=== PATIENT | female | born 1960 | race Caucasian/White ===

== ENCOUNTER 2020-03-16 08:43 | Outpatient (REF) | payer OTHER, SELFPAY ==
--- NOTE | 2020-03-16 | US_ITS ---
EXAMINATION: ULTRASOUND SOFT TISSUE NECK CLINICAL INFORMATION: Multinodular thyroid. Cervical lymphadenopathy. COMPARISON: None TECHNIQUE: Routine imaging of the neck was performed for lymph node evaluation. FINDINGS: RIGHT NECK: 1. Level 5 the lymph node measures 0.8 x 0.6 x 0.9 cm. It has central echogenic medulla and hypoechoic cortex, normal pattern. 2. Level 5B lymph node measures 1.7 x 0.6 x 1.2 cm. It has homogeneous echotexture. 3. Level 2 lymph node measures 1.2 x 0.6 x 1.0 cm. Central echogenic area and hypoechoic cortex, a normal pattern. 4. On a lymph node measures 0.9 x 0.6 x 0.9 cm and is normal. LEFT NECK: 1. Level 5B lymph node measures 1.5 x 0.6 x 1.3 cm. There is central echogenic medulla and surrounding hypoechoic cortex. US/US soft tiss head and/or neck IMPRESSION: Benign bilateral neck lymph nodes seen.
== END 2020-03-16 08:44 | disposition home or self-care (01) ==
LOC: HO.US 08:43
PROVIDERS: PCP Internal Medicine; Visit Provider Internal Medicine
DX: E04.2 Nontoxic multinodular goiter (principal); E55.9 Vitamin D deficiency, unspecified; R59.0 Localized enlarged lymph nodes
CPT/HCPCS: 76536

== ENCOUNTER → 2020-04-29 08:00 | Outpatient (BNVA) | payer OTHER, SELFPAY | PROVIDERS: PCP Internal Medicine; Referring Provider Internal Medicine; Visit Provider Internal Medicine | DX: Z13.89 Encounter for screening for other disorder (principal) | CPT/HCPCS: Q3014 ==

== ENCOUNTER 2020-05-22 06:59 | Outpatient (REF) | payer OTHER, SELFPAY ==
[2020-05-22 08:20] LABS: Estimated Average Glucose 126 mg/dL
[2020-05-22 08:29] LABS: Alanine Aminotransferase 18 U/L (0-31); Albumin Level 4.2 g/dL (3.5-5.0); Alkaline Phosphatase 157 U/L (39-117); Anion Gap 11 (12-20); Aspartate Amino Transferase 18 U/L (5-31); Bilirubin Total 0.3 mg/dL (0.0-1.0); Blood Urea Nitrogen 11 mg/dL (9-16); Calcium 8.8 mg/dL (8.4-10.2); Carbon Dioxide 27 mmol/L (22-29); Chloride 104 mmol/L (96-108); Cholesterol 136 mg/dL; Estimated Glomerular Filt Rate 49; Glucose Random 121 mg/dL (60-115); HDL Cholesterol 45 mg/dL; LDL Cholesterol Calculated 61 mg/dl; Sodium 138 mmol/L (135-145); Total Protein 7.5 g/dL (6.5-8.0); Triglycerides 154 mg/dL
[2020-05-22 08:51] LABS: Vitamin D 25-OH Total 33.1 ng/mL (>30)
[2020-05-22 09:25] LABS: Creatinine Urine 168.84 mg/dL; Microalbum/Creatinine Ratio Ur 16.5 ug/mg cr
[2020-05-24 01:28] LABS: LDL Cholesterol Direct 54 mg/dL (<100)
== END 2020-05-22 07:00 | disposition home or self-care (01) ==
LOC: HO.LAB 06:59
PROVIDERS: PCP Internal Medicine; Visit Provider Internal Medicine
DX: E11.65 Type 2 diabetes mellitus with hyperglycemia (principal); E55.9 Vitamin D deficiency, unspecified
CPT/HCPCS: 36415; 80053; 80061; 82043; 82306; 83036; 83721

== ENCOUNTER → 2020-06-04 14:37 | Outpatient (BNVA) | payer OTHER, SELFPAY | PROVIDERS: Visit Provider Internal Medicine ==

== ENCOUNTER 2020-07-22 09:01 | Outpatient (REF) | payer OTHER, SELFPAY ==
[2020-07-22 10:44] LABS: Creatinine Urine 211.59 mg/dL; Protein/Creatinine Ratio, Ur 0.17 (<0.2); Total Protein Urine Random 37 mg/dL (<12)
[2020-07-22 11:06] LABS: Estimated Average Glucose 117 mg/dL; Hemoglobin A1c % 5.7 %
[2020-07-22 13:25] LABS: Alanine Aminotransferase 18 U/L (0-31); Albumin Level 4.2 g/dL (3.5-5.0); Alkaline Phosphatase 136 U/L (39-117); Anion Gap 13 (12-20); Aspartate Amino Transferase 20 U/L (5-31); Bilirubin Total 0.6 mg/dL (0.0-1.0); Blood Urea Nitrogen 9 mg/dL (9-16); Calcium 8.8 mg/dL (8.4-10.2); Carbon Dioxide 24 mmol/L (22-29); Chloride 107 mmol/L (96-108); Estimated Glomerular Filt Rate 53; Glucose Random 91 mg/dL (60-115); Potassium 3.9 mmol/L (3.3-5.1); Sodium 140 mmol/L (135-145); Total Protein 7.6 g/dL (6.5-8.0)
[2020-07-22 13:41] LABS: TSH reflex Free T4 2.13 uIU/mL (0.32-4.0)
== END 2020-07-22 09:02 | disposition home or self-care (01) ==
LOC: HO.LAB 09:01
PROVIDERS: Internal Medicine; Absent Provider Internal Medicine Hypertension Specialist; PCP Internal Medicine; Visit Provider Internal Medicine
DX: E11.65 Type 2 diabetes mellitus with hyperglycemia (principal); I10 Essential (primary) hypertension; R80.9 Proteinuria, unspecified; E04.2 Nontoxic multinodular goiter; I87.2 Venous insufficiency (chronic) (peripheral)
CPT/HCPCS: 36415; 80053; 83036; 84156; 84443

== ENCOUNTER → 2020-07-29 09:02 | Outpatient (BNVA) | payer OTHER, SELFPAY | PROVIDERS: PCP Internal Medicine; Visit Provider Internal Medicine | DX: E11.65 Type 2 diabetes mellitus with hyperglycemia (principal); E04.2 Nontoxic multinodular goiter; E78.5 Hyperlipidemia, unspecified; R59.0 Localized enlarged lymph nodes; I10 Essential (primary) hypertension; Z79.84 Long term (current) use of oral hypoglycemic drugs; Z71.3 Dietary counseling and surveillance | CPT/HCPCS: 82947; 99212 ==

== ENCOUNTER 2020-08-06 09:06 | Outpatient (REF) | payer OTHER, SELFPAY | END 2020-08-06 09:07 | disposition home or self-care (01) | LOC: HO.LAB 09:06 | PROVIDERS: Absent Provider Internal Medicine; PCP Internal Medicine; Visit Provider Surgery Vascular Surgery | DX: E04.2 Nontoxic multinodular goiter (principal); I83.12 Varicose veins of left lower extremity with inflammation | CPT/HCPCS: 36415; 84443; 99202 ==

== ENCOUNTER 2020-08-17 09:59 | Outpatient (REF) | payer OTHER, SELFPAY ==
--- NOTE | ~2020-08-17 | US_ITS ---
EXAMINATION: RIGHT and LEFT LOWER EXTREMITY VENOUS ULTRASOUND (Reflux Exam) CLINICAL INDICATION: leg pain and varicose veins. COMPARISON: None. TECHNIQUE: Color flow triplex imaging and compression Doppler was performed to evaluate both the deep and the superficial systems bilaterally. To evaluate the superficial system, the examination was performed in the upright position. Color-flow Doppler ultrasound and compression ultrasound were utilized. In addition, maneuvers were utilized to demonstrate reflux. FINDINGS: 1. DEEP VENOUS ULTRASOUND OF THE RIGHT LOWER EXTREMITY: Respiratory variation, normal compression and augmented flow are noted in the right common femoral vein as well as the right popliteal vein and there is no evidence of deep venous thrombosis at these locations. There is no evidence of reflux in the deep system in either the common femoral vein or the popliteal vein. There is no evidence of a Stacy's cyst. 2. SUPERFICIAL ULTRASOUND WITH DOPPLER OF RIGHT LOWER EXTREMITY: The right great saphenous vein at the saphenofemoral junction measures 6 mm, at the mid thigh 5 mm, qpzuu-[id number]-jauf 2 mm, ubcwh-zfn-boio 2 mm, at mid calf 2 mm and at the ankle measures 2 mm. There is no reflux demonstrated in the right great saphenous vein. There is a lateral accessory greater saphenous vein that measures 2 mm and does not demonstrate reflux. The right small saphenous vein measures 2-3 mm and shows no reflux. There is a electric power superintendent in the mid calf that measures 2 mm and does not demonstrate reflux. 3. DEEP VENOUS ULTRASOUND OF THE LEFT LOWER EXTREMITY: Respiratory variation, normal compression and augmented flow are noted in the left common femoral vein as well as the left popliteal vein and there is no evidence of deep venous thrombosis at these locations. There is no evidence of reflux in the deep system in either the common femoral vein or the popliteal vein. . There is no evidence of a Stacy's cyst. 4. SUPERFICIAL ULTRASOUND WITH DOPPLER OF LEFT LOWER EXTREMITY: Left great saphenous vein at the saphenofemoral junction measures 5 mm, at the mid thigh 3 mm, lbrwd-deu-qkgf 3 mm, ijgfq-ear-dcpp 3 mm. The left greater saphenous vein is not visualized in the mid calf or ankle. There is no reflux demonstrated in the left great saphenous vein. There is a lateral accessory greater saphenous vein that measures 3 mm and demonstrates 2.4 seconds reflux. The left small saphenous vein measures 2-3 mm and shows no reflux. US/US venous duplex LE BI IMPRESSION: 1. No evidence of reflux or thrombus in the common femoral veins or popliteal veins bilaterally. 2. No greater saphenous vein reflux. 2.4 seconds reflux in an accessory left lateral greater saphenous vein.
== END 2020-08-17 10:00 | disposition home or self-care (01) ==
LOC: HO.US 09:59
PROVIDERS: Visit Provider Surgery Vascular Surgery
DX: I83.893 Varicose veins of bilateral lower extremities with other complications (principal); I83.12 Varicose veins of left lower extremity with inflammation
CPT/HCPCS: 93970

== ENCOUNTER → 2020-09-01 09:33 | Outpatient (BNVA) | payer OTHER, SELFPAY | PROVIDERS: PCP Internal Medicine; Visit Provider Surgery Vascular Surgery | DX: I83.12 Varicose veins of left lower extremity with inflammation (principal) | CPT/HCPCS: 99212 ==

== ENCOUNTER 2020-11-03 08:49 | Outpatient (REF) | payer OTHER, SELFPAY ==
--- NOTE | ~2020-11-03 | US_ITS ---
EXAMINATION: US THYROID CLINICAL INFORMATION: Nontoxic multinodular goiter. Enlarged lymph nodes, mapping. COMPARISON: Ultrasound soft tissue head/neck thyroid dated 06/19/2019. TECHNIQUE: Linear transducer grayscale and color Doppler examination with attention to the region of the thyroid. FINDINGS: SIZE: Measurements of the thyroid lobes and nodules are given in sagittal, anteroposterior and transverse dimensions respectively. Right Thyroid Lobe: 4.3 x 1.4 x 1.5 cm, volume 4.7 mL. Previously 4.4 x 1.4 x 1.4 cm, volume 4.5 mL. Parenchyma: The gland echotexture is homogeneous. Thyroid vascularity is normal. Left Thyroid Lobe: 3.8 x 1.0 x 1.3 cm, volume 2.6 mL. Previously 3.7 x 1.3 x 1.2 cm, volume 3.0 mL. Parenchyma: The gland echotexture is homogeneous. Thyroid vascularity is normal. Isthmus: 0.3 cm in maximum AP dimension. Previously 0.3 cm. Estimated total number of nodules greater than or equal to 1 cm: 0. Electronic Coils Supervisor nodules are described as follows: 1. Location: Left. Size: 0.6 x 0.2 x 0.2 cm, volume 0.01 mL. Previously: 0.4 x 0.3 x 0.3 cm, volume 0.02 mL. Nodule characteristics: Composition: Solid/almost completely solid (2). Echogenicity: Isoechoic (1). Shape: Not taller than wide (0). Margins: Smooth (0). Echogenic Foci: None (0). ACR TI-RADS total points: 3 ACR TI-RADS category: 3 Significant change in size (>/= 20% in 2 dimensions and minimal increase of 2 mm or 50% or greater increase in volume): No Change in features: No Change in ACR TI-RADS risk category: No NODES: See separate dictation. US/US thyroid IMPRESSION: Stable small left thyroid nodule. According to TI-RADS criteria, no ultrasound follow up indicated. ACR TI-RADS RECOMMENDATION REFERENCE: Ultrasound-guided fine-needle aspiration, followup ultrasound, no further follow up. * TR1 (0 point) and TR 2 (2 points): No FNA or follow up * TR3 (3 points): FNA if more than or equal to 2.5 cm in maximum dimension, followup ultrasound in 1, 3 and 5 years if 1.5 to 2.4 cm in maximum dimension. * TR4 (4-6 points): FNA if more than or equal to 1.5 cm in maximum dimension, followup ultrasound in 1, 2, 3 and 5 years if 1 to 1.4 cm in maximum dimension. * TR5 (more than or equal to 7 points): FNA if more than or equal to 1 cm in maximum dimension, followup ultrasound every year for 5 years if 0.5 to 0.9 cm in maximum dimension. * TR3, TR4 or TR5 nodules that are below the size threshold for follow up receive no follow up. EXAMINATION: US SOFT TISSUE NECK CLINICAL INFORMATION: Enlarged lymph nodes, mapping. COMPARISON: Previous exam 03/16/2020. TECHNIQUE: Ultrasound of the neck soft tissues is performed with high frequency murray-scale imaging and color Doppler. FINDINGS: RIGHT NECK SOFT TISSUES: Right neck soft tissues and nodes are as follows: Level 1b: 11 x 5 x 9 mm compared to 12 x 6 x 10 mm. Abnormal low architecture with slit-like or absent hilum. Level 1b: 10 x 5 x 8 mm compared to 9 x 6 x 9 mm. Normal rosendo architecture. Level 1b: 6 x 4 x 5 mm. Normal rosendo architecture. Level II: 11 x 5 x 9 mm compared to 8 x 6 x 9 mm. Normal rosendo architecture. Level II:19 x 5 x 13 mm compared to 17 x 6 x 12 mm. Abnormal rosendo architecture with slit-like or absent hilum. LEFT NECK SOFT TISSUES: Left neck soft tissues and nodes are as follows: Level 1b: 13 x 3 x 7 mm compared to 6 mm. Normal rosendo architecture. Level II: 12 x 4 x 18 mm, new. Abnormal rosendo architecture with slit-like or absent hilum. Level III: 14 x 4 x 9 mm compared to 15 x 6 x 13 mm. Normal rosendo architecture. Level III:7 x 6 x 6 mm, new. Normal rosendo architecture. IMPRESSION: Persistent bilateral cervical lymphadenopathy.
== END 2020-11-03 08:50 | disposition home or self-care (01) ==
LOC: HO.HMGCX 08:49
PROVIDERS: PCP Internal Medicine; Visit Provider Internal Medicine
DX: E04.2 Nontoxic multinodular goiter (principal); R59.0 Localized enlarged lymph nodes
CPT/HCPCS: 76536

== ENCOUNTER → 2020-11-04 09:26 | Outpatient (BNVA) | payer OTHER, SELFPAY | PROVIDERS: PCP Internal Medicine; Visit Provider Internal Medicine | DX: E11.65 Type 2 diabetes mellitus with hyperglycemia (principal); E78.5 Hyperlipidemia, unspecified; I10 Essential (primary) hypertension; E04.2 Nontoxic multinodular goiter; R59.0 Localized enlarged lymph nodes | CPT/HCPCS: 82947; 99212 ==

== ENCOUNTER 2021-05-06 07:02 | Outpatient (REF) | payer OTHER, SELFPAY ==
[2021-05-06 08:06] LABS: Estimated Average Glucose 123 mg/dL; Hemoglobin A1c % 5.9 %
[2021-05-06 08:13] LABS: Alanine Aminotransferase 9 U/L (0-31); Albumin Level 3.9 g/dL (3.5-5.0); Alkaline Phosphatase 128 U/L (39-117); Anion Gap 12 (12-20); Aspartate Amino Transferase 14 U/L (5-31); Bilirubin Total 0.5 mg/dL (0.0-1.0); Blood Urea Nitrogen 8 mg/dL (9-16); Calcium 9.3 mg/dL (8.4-10.2); Carbon Dioxide 28 mmol/L (22-29); Chloride 105 mmol/L (96-108); Estimated Glomerular Filt Rate 54; Glucose Random 99 mg/dL (60-115); Potassium 4.1 mmol/L (3.3-5.1); Sodium 141 mmol/L (135-145); Total Protein 7.5 g/dL (6.5-8.0)
[2021-05-06 08:34] LABS: Free T4 (Free Thyroxine) 0.93 ng/dL (0.71-1.85); Vitamin D 25-OH Total 12.4 ng/mL (>30)
== END 2021-05-06 07:03 | disposition home or self-care (01) ==
LOC: HO.LAB 07:02
PROVIDERS: PCP Family Medicine; Visit Provider Internal Medicine
DX: E04.2 Nontoxic multinodular goiter (principal); E55.9 Vitamin D deficiency, unspecified; E11.65 Type 2 diabetes mellitus with hyperglycemia
CPT/HCPCS: 36415; 80053; 82306; 83036; 84439; 84443

== ENCOUNTER 2023-02-02 13:07 | Outpatient (REF) | payer OTHER, SELFPAY ==
[2023-02-02 14:27] LABS: MANUAL DIFF FLAG NO
[2023-02-02 14:36] LABS: Basophils Absolute Auto 0.1 X10*3/uL (0.0-0.2); Basophils Percent Auto 0.6 % (0-2); Eosinophils Absolute Auto 0.2 X10*3/uL (0.0-0.4); Eosinophils Percent Auto 2.2 % (0-4); Hematocrit 35.3 % (37.0-47.0); Hemoglobin 11.2 g/dl (12.0-16.0); Imm Gran Abs Auto 0.02 X10*3/uL (0.00-0.03); Imm Gran Pct Auto 0.3 % (0.0-0.4); Lymphocytes Absolute Auto 2.5 X10*3/uL (1.2-4.9); Lymphocytes Percent Auto 32.4 % (20-40); Mean Corpuscular HGB Conc 31.7 g/dl (31.0-35.0); Mean Corpuscular Hemoglobin 27.1 pg (27.0-33.0); Mean Corpuscular Volume 85.3 fL (80.0-98.0); Mean Platelet Volume 9.9 fL (9.4-12.3); Monocytes Absolute Auto 0.4 X10*3/uL (0.1-1.2); Neutrophils Absolute Auto 4.6 x10*3/uL (2.0-8.3); Neutrophils Percent Auto 59.5 % (45-73); Platelet Count 298 X10*3/uL (160-400); Red Blood Count 4.14 X10*6/uL (4.20-5.50); Red Cell Distribution Width 14.6 % (11.0-16.0); White Blood Count 7.8 X10*3/uL (4.8-10.8)
[2023-02-02 15:50] LABS: Creatinine Urine 74.97 mg/dL; Microalbum/Creatinine Ratio Ur 102.7 ug/mg cr (<30)
[2023-02-02 15:50] LABS: Alanine Aminotransferase 24 U/L (0-31); Albumin Level 4.3 g/dL (3.5-5.0); Alkaline Phosphatase 143 U/L (39-117); Anion Gap 13 (12-20); Aspartate Amino Transferase 21 U/L (5-31); Bilirubin Total 0.3 mg/dL (0.0-1.0); Blood Urea Nitrogen 28 mg/dL (9-16); Calcium 9.8 mg/dL (8.4-10.2); Carbon Dioxide 23 mmol/L (22-29); Chloride 108 mmol/L (96-108); Cholesterol 135 mg/dL (<200); Estimated Glomerular Filt Rate 28; Glucose Fasting 108 mg/dL (60-99); HDL Cholesterol 53 mg/dL (>40); LDL Cholesterol Calculated 54 mg/dL (<100); Potassium 4.8 mmol/L (3.3-5.1); Sodium 139 mmol/L (135-145); Total Protein 8.2 g/dL (6.5-8.0); Triglycerides 141 mg/dL (<150)
[2023-02-02 16:06] LABS: TSH reflex Free T4 1.73 uIU/mL (0.32-4.0)
[2023-02-03 08:16] LABS: HIV AB/AG Nonreactive (Nonreactive); HIV Num 1 0.05 S/CO (0.00-0.99); ~HepC Num1 0.33 S/CO (0.00-0.79); ~Hepatitis C Antibody Nonreactive (Nonreactive)
== END 2023-02-02 13:08 | disposition home or self-care (01) ==
LOC: HO.CHCLDS 13:07
PROVIDERS: Visit Provider Family Medicine
DX: E11.21 Type 2 diabetes mellitus with diabetic nephropathy (principal)
CPT/HCPCS: 36415; 80053; 80061; 82043; 82570; 84443; 85025; 86803; 87389

== ENCOUNTER 2023-02-15 10:57 | Outpatient (REF) | payer OTHER, SELFPAY ==
[2023-02-15 14:35] LABS: Alanine Aminotransferase 24 U/L (0-31); Alkaline Phosphatase 121 U/L (39-117); Anion Gap 15 (12-20); Aspartate Amino Transferase 25 U/L (5-31); Bilirubin Total 0.4 mg/dL (0.0-1.0); Blood Urea Nitrogen 28 mg/dL (9-16); Calcium 9.4 mg/dL (8.4-10.2); Carbon Dioxide 18 mmol/L (22-29); Chloride 108 mmol/L (96-108); Estimated Glomerular Filt Rate 23; Glucose Fasting 245 mg/dL (60-99); Potassium 4.6 mmol/L (3.3-5.1); Sodium 136 mmol/L (135-145); Total Protein 7.7 g/dL (6.5-8.0)
== END 2023-02-15 10:58 | disposition home or self-care (01) ==
LOC: HO.CHCLDS 10:57
PROVIDERS: Visit Provider Family Medicine
DX: N17.9 Acute kidney failure, unspecified (principal)
CPT/HCPCS: 36415; 80053

== ENCOUNTER 2023-02-27 11:44 | Outpatient (REF) | payer OTHER, SELFPAY ==
[2023-02-27 14:14] LABS: Appearance Urine Clear; Color Urine Yellow; Glucose Urine UA >=1000 mg/dL (Negative); Leukocyte Esterase Urine Negative (Negative); Nitrite Urine Negative (Negative); PH 5.5 (5.0-9.0); Specific Gravity - Urine 1.025 (1.005-1.025); UMIC TRIGGER UA YES; Urine Blood Trace (Negative); Urine Ketones Negative (Negative); Urine Protein 100 (2+) mg/dL (Neg-Trace)
[2023-02-27 14:32] LABS: Bacteria Urine None Seen (None Seen); RBC Urine 0-2 /HPF (0-2); WBC Urine 0-5 /HPF (0-5)
[2023-02-27 14:48] LABS: Anion Gap 15 (12-20); Blood Urea Nitrogen 23 mg/dL (9-16); Calcium 9.4 mg/dL (8.4-10.2); Carbon Dioxide 21 mmol/L (22-29); Chloride 106 mmol/L (96-108); Estimated Glomerular Filt Rate 30; Potassium 4.8 mmol/L (3.3-5.1); Sodium 137 mmol/L (135-145)
[2023-02-27 14:49] LABS: Creatinine Urine 118.26 mg/dL
== END 2023-02-27 11:45 | disposition home or self-care (01) ==
LOC: HO.CHCLDS 11:44
PROVIDERS: Visit Provider Family Medicine
DX: N17.9 Acute kidney failure, unspecified (principal)
CPT/HCPCS: 36415; 80051; 81001; 82310; 82565; 82570; 84300; 84520

== ENCOUNTER 2023-03-03 12:03 | Outpatient (REF) | payer OTHER, SELFPAY ==
--- NOTE | ~2023-03-03 | US_ITS ---
EXAMINATION: US RETROPERITONEAL LIMITED (RENAL ONLY) CLINICAL INFORMATION: Acute kidney failure. COMPARISON: X-ray [facility] 11/01/2017 and 10/18/2017. TECHNIQUE: Real-time imaging of the kidneys. Limited visualization due to bowel gas. FINDINGS: RIGHT KIDNEY: 9.4 x 3.5 x 3.9 cm (SAG x AP x TRV). No hydronephrosis. No renal calculi. Renal cortical thickness is normal. Limited visualization. LEFT KIDNEY: 9.5 x 5.0 x 4.5 cm (SAG x AP x TRV). No hydronephrosis. No renal calculi. Renal cortical thickness is normal. Limited visualization. Prominent left renal pyramids, possible minimal borderline calyectasis. ADDITIONAL FINDINGS: Increased heterogeneous hepatic echotexture on limited views of the liver concerning for hepatocellular disease, hepatic steatosis. US/US renal BI IMPRESSION: 1. Prominent left renal pyramids, possible minimal borderline calyectasis. No renal calculi. 2. Small bilateral kidneys. 3. Increased heterogeneous hepatic echotexture on limited views of the liver concerning for hepatocellular disease, hepatic steatosis. Dedicated views of the liver and correlation with clinical exam recommended to determine further management.
== END 2023-03-03 12:04 | disposition home or self-care (01) ==
LOC: HO.US 12:03
PROVIDERS: PCP Family Medicine; Visit Provider Family Medicine
DX: N17.9 Acute kidney failure, unspecified (principal)
CPT/HCPCS: 76775

== ENCOUNTER 2024-01-19 08:30 | Outpatient (REF) | payer OTHER, SELFPAY ==
[2024-01-19 14:13] LABS: MANUAL DIFF FLAG NO
[2024-01-19 14:29] LABS: Basophils Percent Auto 0.3 % (0-2); Eosinophils Absolute Auto 0.1 X10*3/uL (0.0-0.4); Eosinophils Percent Auto 0.7 % (0-4); Hematocrit 35.6 % (37.0-47.0); Hemoglobin 11.7 g/dl (12.0-16.0); Imm Gran Abs Auto 0.04 X10*3/uL (0.00-0.03); Imm Gran Pct Auto 0.4 % (0.0-0.4); Lymphocytes Percent Auto 22.1 % (20-40); Mean Corpuscular HGB Conc 32.9 g/dl (31.0-35.0); Mean Corpuscular Hemoglobin 26.7 pg (27.0-33.0); Mean Corpuscular Volume 81.1 fL (80.0-98.0); Monocytes Absolute Auto 0.4 X10*3/uL (0.1-1.2); Monocytes Percent Auto 4.2 % (2-11); Neutrophils Absolute Auto 6.6 x10*3/uL (2.0-8.3); Neutrophils Percent Auto 72.3 % (45-73); Platelet Count 303 X10*3/uL (160-400); Red Blood Count 4.39 X10*6/uL (4.20-5.50); Red Cell Distribution Width 14.6 % (11.0-16.0); White Blood Count 9.2 X10*3/uL (4.8-10.8)
[2024-01-19 14:58] LABS: Rheumatoid Factor < 13.0 IU/mL (<15.0)
[2024-01-19 15:07] LABS: Erythrocyte Sedimentation Rate 58 MM/HR (0-20)
[2024-01-20 07:51] LABS: ~HepC Num1 0.31 S/CO (0.00-0.79); ~Hepatitis C Antibody Nonreactive (Nonreactive)
[2024-01-20 08:26] LABS: HBsAGNum1 0.19 S/CO (0.00-0.99); Hepatitis B Surface Antigen Negative (Negative)
[2024-01-22 18:04] LABS: Lyme Abs Screen <0.90 index
[2024-01-25 16:33] LABS: Cyclic Citrullinated Peptide <16 UNITS
== END 2024-01-19 08:31 | disposition home or self-care (01) ==
LOC: HO.CHCLDS 08:30
PROVIDERS: Visit Provider Family Medicine
DX: M25.50 Pain in unspecified joint (principal)
CPT/HCPCS: 36415; 85025; 85652; 86140; 86200; 86431; 86617; 86618; 86803; 87340

== ENCOUNTER 2024-02-27 08:36 | Outpatient (REF) | payer OTHER, SELFPAY ==
[2024-02-27 15:05] LABS: Anion Gap 15 (12-20); Blood Urea Nitrogen 9 mg/dL (9-16); Calcium 8.7 mg/dL (8.4-10.2); Carbon Dioxide 27 mmol/L (22-29); Chloride 106 mmol/L (96-108); Estimated Glomerular Filt Rate 48; Glucose Random 81 mg/dL (60-115); Potassium 3.5 mmol/L (3.3-5.1); Sodium 144 mmol/L (135-145)
== END 2024-02-27 08:37 | disposition home or self-care (01) ==
LOC: HO.CHCLDS 08:36
PROVIDERS: Referring Provider Family Medicine; Visit Provider Student in an Organized Health Care Education/Training Program
DX: E11.65 Type 2 diabetes mellitus with hyperglycemia (principal)
CPT/HCPCS: 36415; 80048

== ENCOUNTER 2024-10-03 10:32 | Outpatient (REF) | payer OTHER, SELFPAY ==
--- OUTSIDE RECORDS SUMMARY | 2024-10-03 11:08 | XMS_ITS | Encounter Summary ---
Author Organization [employer] Address [address] [place] [address] Care Team Providers Care Insole Coverer Name Role Phone Zulema Wasserman MD Primary Care Provider Reason for Visit * Reason Onset Date Comments Appointment Request 05/22/2023 Encounter Details Date Type Department Care Team ([facility] st Contact Info) Description 05/22/2023 Telephone [facility] [address] [place] [address] Zulema Wasserman MD [address] [place] [address] Appointment Request Social History Tobacco Use Types Packs/Day Years Used Date Smoking Tobacco: Never Passive Smoke Exposure: Never Smokeless Tobacco: Never Alcohol Use Standard Drinks/Week Comments Never 0 (1 standard drink = 0.6 oz pur e alcohol) Depression Answer Date Recorded Patient Health Questionnaire-9 Score 23 02/01/2023 Housing Stability Answer Date Recorded What is your housing situation today? I have stephiejustina de la rosa 02/27/[address] you li ve. Do you have problems with any of the following? None of the above 02/27/2023 Food Insecurity Answer Date Recorded Within the past 12 months, y ou worried that your food would run out before you got money to buy more: Never True 02/27/2023 Within the past 12 months,th e food you bought just didn't last and you didn't have enough money to get more: Never True Transportation Answer Date Recorded In the past 12 months, has l ack of transportation kept you from medical appts, meetings, work or from getting things needed for daily living? No 02/27/2023 Utilities Answer Date Recorded In the past 12 months, has t he electric, gas, oil or water company threatened to shut off services in your home? No 02/27/2023 Depression Answer Date Recorded Patient Health Questionnaire-2 Score 6 02/01/2023 Comments Unknown Sex and Gender Information Value Date Recorded Sex Assigned at Female 03/14/2022 10:39 AM EDT Legal Sex Female 10:39 AM EDT Gender Identity Female 03/14/2022 10:39 AM EDT Sexual Orientation Choose not to disclose 2021 10:39 AM EDT documented as of this encounter Miscellaneous Notes * Telephone Encounter - Davide Holcomb - 05/22/2023 9:21 AM EST Tc from patient calling to reschedule appt on 05/22/2023 @ 9:15 states the transportation called late to cancel junior technical writer did offer appt but wanted something sooner documented in this encounter Plan of Treatment Not on file documented as of this encounter Visit Diagnoses Not on filedocumented in this encounter Additional Health Concerns Assessment Noted Time PHQ-9 Depression Total Score: 23 023 10:05 AM EDT documented as of this encounter Care Teams Insole Coverer Relationship Specialty Start Date End Date Zulema Wasserman MD [address] [place] [id number] PCP - General Family Medicine 02/10/21 Ashley Orosco Psychiatrist 01/27/23 Alexis 04/25/23 documented as of this encounter
--- OUTSIDE RECORDS SUMMARY | 2024-10-03 11:08 | XMS_ITS | Encounter Summary ---
Author Organization [employer] Address [address] [facility] [facility] [address] [place] [address] Care Team Providers Care Acquisitions Analyst Name Role Phone Zulema Wasserman MD Primary Care Provider [phone] Encounter Details Date Type Department Care Team (Late st Contact Info) Description 01/31/2024 Orders Only [facility] [address] [place], [place] [id number] Provider, MD Estuardo Social History Tobacco Use Types Packs/Day Years Used Date Smoking Tobacco: Never Passive Smoke Exposure: Never Smokeless Tobacco: Never Alcohol Use Standard Drinks/Week Comments Never 0 (1 standard drink = 0.6 oz pur e alcohol) Depression Answer Date Recorded Patient Health Questionnaire-9 Score 23 02/01/2023 Housing Stability Answer Date Recorded What is your housing situation today? I have stephie de la rosa 02/27/2023 Think about the [...] AM EDT documented as of this encounter Plan of Treatment Not on file documented as of this encounter Procedures Procedure Name Priority Date/Time Associated Diagnosis Comments XR CHEST 2 VIEWS Routine 01/24/2024 9:36 AM EDT documented in this encounter Results * XR Chest 2 Views (01/24/2024 9:36 AM EDT) Anatomical Region Laterality Modality Chest Radiographic Bessie ging us Historical Provider MD GUPTA XR PROCEDURES Final R esult documented in this encounter Visit Diagnoses Not on filedocumented in this encounter Additional Health Concerns Assessment Noted Time PHQ-9 Depression Total Score: 23 023 10:05 AM EDT documented as of this encounter Care Teams Acquisitions Analyst Relationship Specialty Start Date End Date Zulema Wasserman MD [address] [place] [address] PCP - General Family Medicine 02/10/21 Ashley Orosco Psychiatrist 01/27/23 Alexis 04/25/23 documented as of this encounter
--- OUTSIDE RECORDS SUMMARY | 2024-10-03 11:08 | XMS_ITS | Clinical Summary ---
Author Organization [facility] Address [address] [facility] [address] [place] [address] Phone Care Team Providers Care Audit Clerk Name Role Phone Zulema Wasserman MD Primary Care Provider [phone] Allergies No known active allergies Medications Multiple Vitamin (MULTIVITAMIN ADULT PO) Take 1 capsule by mouth 1 (one) time each day Active zolpidem (AMBIEN) 10 MG tablet Take 1 tablet by mouth 1 (one) time each day Active cholecalciferol (VITAMIN D-3) 50 MCG (1999) capsule Take 1 capsule by mouth 1 (one) time each day 12/22/19 21 Active clonazePAM (KlonoPIN) 1 MG tablet Take 1 mg by mouth 2 (two) times a day 01/29/20 21 Active escitalopram (LEXAPRO) 5 MG tablet Take 5 mg by mouth 1 (one) time each day 05/08/20 21 Active latanoprost (XALATAN) 0.005 % ophthalmic solution 05/05/20 21 Active lidocaine (LIDODERM) 5 % patch APPLY 1 PATCH TOPICALLY TO THE SKIN EVERY DAY. MAY WEAR UP TO 12 HOURS 04/19/20 21 Active ketorolac (ACULAR) 0.5 % ophthalmic solution Administer 1 drop into affected eye(s) 01/20/20 21 Active meclizine (ANTIVERT) 25 MG tablet Take 25 mg by mouth in the morning and 25 mg in the evening. 11/06/19 22 Active FLUoxetine (PROzac) 20 MG tablet Take 40 mg by mouth 1 (one) time each day 10/20/19 22 Active rosuvastatin (CRESTOR) 40 MG tablet Take 1 tablet by mouth 1 (one) time each day 11/29/20 22 Active doxepin (SINEquan) 100 MG capsule Take 1 capsule by mouth 1 (one) time each day 04/24/20 Active Lubricant Eye Drops 0.5 % solution INSTILL 1 DROP IN BOTH EYES UP TO FOUR TIMES DAILY 03/10/20 22 Active ferrous gluconate (FERGON) 324 (38 Fe) MG tablet Take 324 mg by mouth 1 (one) time each day with breakfast Active pantoprazole (PROTONIX) 40 MG EC tablet Take 40 mg by mouth 1 (one) time each day before breakfast Do not crush, chew, or split. Active amLODIPine (NORVASC) 5 MG tablet Take 5 mg by mouth in the morning. 10/16/19 24 Active sodium bicarbonate 650 MG tablet TAKE 1 TABLET BY MOUTH THREE TIMES DAILY IN THE MORNING, IN THE EVENING, AND BEFORE BEDTIME. 270 tablet 09/10/19 25 Active Tirzepatide (Mounjaro) 5 MG/0.5ML solution auto-injector Inject under the skin Active doxepin (SINEquan) 25 MG capsule Take 25 mg by mouth every night Active FLUoxetine (PROzac) 40 MG capsule Take 40 mg by mouth 1 (one) time each day Active insulin glargine (LANTUS) 100 UNIT/ML injection Inject under the skin every night Active lisinopril 10 MG tablet Take 10 mg by mouth 1 (one) time each day Active potassium chloride (KLOR-CON M10) 10 MEQ CR tablet Take 10 mEq by mouth 1 (one) time each day Do not crush or chew. Active Ozempic, 0.25 or 0.5 MG/DOSE, 2 MG/1.5ML solution pen-injector 100 mg 10/23/19 22 025 Discontinued Jardiance 25 MG tablet Take 25 mg by mouth 1 (one) time each day in the morning 03/22/20 025 Discontinued ibuprofen (ADVIL,MOTRIN) 600 MG tablet Take 600 mg by mouth in the morning and 600 mg at noon and 600 mg in the evening. Take with meals. 03/29/20 025 Discontinued Dulaglutide (Trulicity) 4.5 MG/0.5ML solution pen-injector Inject under the skin 025 Discontinued sodium bicarbonate 650 MG tablet TAKE 1 TABLET BY MOUTH THREE TIMES DAILY IN THE MORNING, IN THE EVENING, AND BEFORE BEDTIME. 270 tablet 06/18/19 25 025 Discontinued Active Problems Problem Noted Date Diagnosed Date Hypokalemia 09/18/2024 Stage 3b chronic kidney disease 11/01/2023 Chronic kidney disease, stage 4 (severe) 023 Renal osteodystrophy 03/31/2023 Acute nontraumatic kidney injury 02/27/2023 Overview (03/31/2023): Last Assessment & Plan: Will start w/up and referral STAT to nephrology. Insomnia 02/02/2023 03/31/2023 Overview (03/31/2023): Last Assessment & Plan: Reports seroquel is helpful but feels that this is increasing her dizziness, recommended to 1/2 dose and f/up with psychiatrist Gastro-esophageal reflux disease without esophag itis 02/02/2023 03/31/2023 Overview (03/31/2023): Last Assessment & Plan: Will send trial of PPI, f/up in 8 weeks Dizziness 02/02/2023 03/31/2023 Overview (03/31/2023): Last Assessment & Plan: -Patient still present concerns of dizziness. -Advised patient to take have of prescribed medication to subside episodes of dizziness. Constipation 02/02/2023 03/31/2023 Overview (03/31/2023): Last Assessment & Plan: Patient didn't try senna as plan, she went straight to using lactulose which she has found to be helpful for her constipation. Discontinue senna. Severe recurrent major depre ssion without psychotic features 01/27/2023 03/31/2023 Overview (03/31/2023): Last Assessment & Plan: Patient with symptoms of anhedonia, hopelessness, sleep disturbance, fatigued, poor appetite, feelings of guilt, difficulty concentrating, restlessness, S/I with no plan, nervousness, over-worrying, trouble relaxing, irritability and fearfulness. Symptoms occur almost everyday and have been present for the last two months, indicating a severe impact on social and occupational functioning. 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 Patient will benefit from continuing working with her therapist and psychiatrist for medication management. Provided contact information for [facility] program if needed for crisis episodes. Recommended follow-up BE with clinician and adding mindfulness techniques into daily routine. At this time Carmita Card meets criteria for Visit Diagnoses: Problem List Items Addressed This Visit Other Severe episode of recurrent major depressive disorder, without psychotic features (CMS/HCC) Bereavement without complication Patient ready to address current needs Yes Strengths include motivated to change PLAN: 1. Follow up with [facility]: Recommended for follow-up: Follow-up scheduled to assess symptoms. 2. Patient goal is to feel less depressed 3. Behavioral Recommendations a. Follow-up BE with clinician in a week b. Continue medication to treat depression c. Contact [facility] program if needed for crisis episoded d. Incorporate self-care and mindfulness techniques into daily routine. Bereavement 01/27/2023 03/31/2023 Paronychia of finger of left hand 05/19/2022 03/31/2023 Overview (03/31/2023): Last Assessment & Plan: Mild, recommended warm soaks and will rx topical abx. Hip pain 05/19/2022 03/31/2023 Overview (03/31/2023): Last Assessment & Plan: Ddx ITB dysfunction, recommended PT and foam rolling, declined. Will end to ortho Type 2 diabetes mellitus with diabetic nephropat hy 04/25/2022 Diabetes mellitus 11/04/2021 Iron deficiency anemia 11/04/2021 Venous varices 11/04/2021 Hypertension 05/10/2021 Hypertensive disorder 02/04/2021 Microalbuminuria 02/04/2021 Resolved Problems Problem Noted Date Diagnosed Date Resolved Date Fibromyositis 11/04/2021 11/04/2021 Refusal of treatment by patient 11/04/2021 11/04/2021 Urinary incontinence 11/04/2021 022 Obese class II 11/04/2021 11/04/2021 Encounters Date Type Department Care Team Description 09/18/2024 10:30 AM EDT Office Visit [facility] [address] [place] [phone] True Samaniego MD Stage 3b chronic kidney disease (HCC) (Primary Dx); Type 2 diabetes mellitus with diabetic nephropathy (HCC); Hypokalemia 09/12/2024 Telephone [facility] [address] [phone] Emily Lacy 09/11/2024 Office Communication [facility] [address] [phone] True Samaniego MD 09/09/2024 Refill [facility] [place] [address] [facility] [address] [place] [address] True Samaniego MD 09/09/2024 Orders Only [facility] [address] [place] [address] Cynthia Bustos [place] Stage 3b chronic kidney disease (HCC) (Primary Dx); Hypertension; Chronic kidney disease, stage 4 (severe) (HCC) from Last 3 Months Immunizations Immunization Administration Dates Next Due Hepatitis A 10/27/2016 Hepatitis B 10/27/2016,05/26/2016,04/28/2016 Influenza, MDCK, PF, Quadrivalent 02/13/2020,12/2018 Influenza, MDCK, Quadrivalen t, with preservative 02/01/2022 Influenza, Quadrivalent, Preservative Free 01/27,02/02/2018 Pete SARS-COV-2 08/07/2020 Pneumococcal Conjugate Pcv 20 01/27/2023 Pneumococcal Polysaccharide 03/22/2017 Shingrix 05/03/2018,02/02/2018 Td, Unspecified 12/21/2016 Tdap 11/21/2018 Family History Medical History Relation Comments Cancer Father colon Diabetes Father Hypertension Father Hypertension Mother Kidney disease Sibling 1 2 brothers on di alysis Diabetes Sibling 2 2 brothers Hypertension Sibling 3 Relation Status Comments Father Mother Sibling 1 Sibling 2 Sibling 3 Social History Tobacco Use Types Packs/Day Years Used Date Smoking Tobacco: Former Smokeless Tobacco: Never Tobacco Cessation:Counseling Given: Not Answered Comments:Smoking History Info:Every day Alcohol Use Standard Drinks/Week Comments No 0 (1 standard drink = 0.6 oz pur e alcohol) Comments Unknown Sex and Gender Information Value Date Recorded Sex Assigned at Not on file Legal Sex Female 4:51 PM EST Gender Identity Not on file Sexual Orientation Not on file Last Filed Vital Signs Vital Sign Reading Time Taken Comments Blood Pressure 98/56 09/18/2024 10:31 AM EDT Pulse 59 09/18/2024 10:31 AM EDT Temperature - - Respiratory Rate - - Oxygen Saturation 99% 12/29/2023 9:16 AM EDT Inhaled Oxygen Concentration - - Weight 83.7 kg (184 lb 9.6 oz) 09/18/2024 10:31 AM EDT Height 160 cm (5' 3 ) 01/10/2019 12:00 PM EDT Body Mass Index 32.7 01/10/2019 12:00 PM EDT Plan of Treatment Upcoming Encounters Date Type Department Care Team (Late st Contact Info) Description 10/30/2024 8:00 AM EDT Office Visit [facility] [address] [phone] Emily Perez ARNP [address] [phone] Health Maintenance Due Date Last Done Comments Breast Cancer Screening 1961 Colorectal Cancer Screening: Annual FOBT 2010 Colorectal Cancer Screening: Colonoscopy 2010 Colorectal Cancer Screening: Sigmoidoscopy 2010 Diabetes: Ophthalmology Exam 05/10/2021 Diabetes: Pedal Pulse Checked 05/10/2021 Diabetes: Sensory Foot Exam 05/10/2021 Diabetes: Visual Foot Exam 05/10/2021 Diabetes: Hemoglobin A1C 06/04/2024 024, 10/16/2023, 08/14/2023, Additional history exists Influenza Vaccine (Season Ended) 2025 01/27/2023, 02/01/2022, 02/13/2020, Additional history exists Hepatitis B Vaccine Aged Out 10/27/2016, 05/26/2016, 04/28/2016 No longer eligible based on patient's age to complete this topic Pneumococcal Vaccine: 50+ Years Completed 01/27/2023, 03/22/2017 Pneumococcal Vaccine: Peds (0 to 5 Years) and At-Risk Patients (6 to 49 Years) Discontinued 01/27/2023, 03/22/2017 Procedures Procedure Name Priority Date/Time Associated Diagnosis Comments RENAL FUNCTION PANEL Today 09/19/2024 10:40 AM EDT Stage 3b chronic kidney disease (HCC) Type 2 diabetes mellitus with diabetic nephropathy (HCC) Hypokalemia ALDOSTERONE Routine 09/12/2024 11:59 AM EDT RENIN ACTIVITY Routine 09/12/2024 11:59 AM EDT CBC WITH AUTO DIFFERENTIAL Routine 09/09/2024 9:58 AM EDT RENAL FUNCTION PANEL Routine 09/09/2024 9:58 AM EDT Stage 3b chronic kidney disease (HCC) Hypertension Chronic kidney disease, stage 4 (severe) (HCC) BLOOD PANEL (HC) Routine 05/25/2020 12:0 0 AM EST from Last 3 Months or Most Recently Relevant to Health Maintenance Results * (ABNORMAL) Renal function panel (09/19/2024 10:40 AM EDT) Only the most recent of2 resultswithin the time period is included. Sodium 141 133 - 145 mmol/L [facility] Potassium 4.3 3.5 - 5.5 mmol/L [facility] Chloride 105 96 - 110 mmol/L [facility] Bicarbonate (CO2) 26 21 - 32 mmol/L [facility] Anion Gap 10 3 - 11 [facility] Glucose 200(H) 70 - 100 mg/dL [facility] BUN 14 5 - 25 mg/dL [facility] Creatinine Serum 1.62(H) 0.50 - 1.10 mg/dL [facility] eGFR 36(L) >=60 mL/min/1. 73m2 [facility] Comment:Calculation based on the Chronic Kidney Disease Epidemiology Collaboration (CKD-EPI) equation refit without adjustment for race. BUN/Creatinine Ratio 8.6 [facility] Albumin 2.9(L) 3.2 - 5.0 g/dL [facility] Calcium 8.8 8.5 - 10.5 mg/dL [facility] Phosphorus 3.2 2.5 - 4.5 mg/dL [facility] Blood specimen (specimen) Venous blood / Unknown 09/19/2024 10:40 AM EDT 09/19/2024 11:15 AM EDT us True Samaniego MD LAB BLOOD ORDERABLES Final Re sult [facility] [address] [place] [address] * Renin Activity (09/12/2024 11:59 AM EDT) Plasma Renin Activity 1.190 0.167 - 5.380 ng/mL/hr [facility] 09/12/2024 11:5 9 AM EDT 09/12/2024 Narrative [facility] - 09/16/2024 11:05 AM EDT Test(s) [id number] Activity, Plasma was developed and its performance characteristics determined by [facility]. It has not been cleared or approved by the Food and Drug Administration. Performed at: ??01 - [facility] ??[id number] Feather Shaper: Marcelina Chan MD, Phone: ??[phone] Reji Trevizo MD LAB BLOOD ORDERABLES Final Resu lt Performing Organization Address [facility] de Phone Number [facility] * Aldosterone (09/12/2024 11:59 AM EDT) [facility] Aldosterone 8.3 ng/dL [facility] Comment: REFERENCE RANGE: Upright ?<= 39.2 ng/dL ?? Supine ? <= 23.2 ng/dL Test performed at [facility], [address] [place], [place] ??[address] ? [phone] Danya Corey MD, PhD - Machine Feeder Floorperson 09/12/2024 11:5 9 AM EDT 09/12/2024 1:55 PM EDT Reji Trevizo MD LAB BLOOD ORDERABLES Final Resu lt Performing Organization Address [facility] de Phone Number [facility] [address] [place] [address] * (ABNORMAL) CBC auto differential (09/09/2024 9:58 AM EDT) [facility] WBC 9.6 4.8 - 10.8 K/[facility] RBC 3.90 3.80 - 4.80 M/[facility] Hgb 10.5(L) 11.5 - 16.0 g/dL [facility] Hematocrit 32.9(L) 35.0 - 47.0 % [facility] MCV 84.6 79.0 - 98.[address] [facility] MCH 27.0 27.0 - 32.[address] [facility] MCHC 31.9(L) 32.0 - 37.0 g/dL [facility] RDW 15.4(H) 11.0 - 15.0 % [facility] Platelets 287 130 - 400 K/[facility] MPV 10.8 7.0 - 11.[address] [facility] nRBC Count 0.0 <1.0 % [facility] NRBC Absolute 0.00 <0.10 K/[facility] Bands Relative 56.8 % [facility] Lymphocyte Realative Percent 34.9 % [facility] Monocyte Relative Percent 4.8 % [facility] Eosinophil Relative Percent 2.4 % [facility] Basophils Relative Diff 0.6 % [facility] Immature Granulocytes 0.5 % [facility] Neutrophils Absolute 5.46 1.50 - 7.00 K/[facility] Lymphocytes Absolute 3.35 1.00 - 5.00 [facility] Monocytes Absolute 0.46 0.20 - 1.00 [facility] Eosinophil Absolute 0.23 0.00 - 0.50 [facility] Basophil ABS 0.06 0.00 - 0.20 [facility] Immature Grans (Absolute) 0.05(H) 0.00 - 0.03 K/[facility] 09/09/2024 9:58 AM EDT 09/09/2024 12:06 PM EDT us True Samaniego MD LAB BLOOD ORDERABLES Final Re sult [facility] [address] [place] [address] * (ABNORMAL) Blood Panel (05/25/2020 12:00 AM EST) Potassium 4.0 3.5 - 5.1 mmol/L [facility] Creatinine 1.14 0.70 - 1.30 mg/dl [facility] Triglycerides 154(H) <150 mg/dl [facility] Hemoglobin A1C 6.0(H) <5 % [facility] Sodium 138 137 - 145 mmol/L [facility] BUN 11 9 - 20 mg/dl [facility] Calcium 8.8 8.4 - 10.2 mg/dl [facility] Cholesterol 136 <200 mg/dl [facility] HDL 54 >40 mg/dl [facility] LDL,Direct 61 <130 mg/dl [facility] 05/25/2020 us [facility] [id number] LICITED RESULTS Final Result [facility] from Last 3 Months or Most Recently Relevant to Health Maintenance Insurance [facility] ([id number]) [facility] ([id number]) ADITYA HORNE [phone] Care Teams Audit Clerk Relationship Specialty Start Date End Date Zluema Wasserman MD [address] [place] [phone] PCP - General Family Medicine 03/14/23
--- OUTSIDE RECORDS SUMMARY | 2024-10-03 11:08 | XMS_ITS | Encounter Summary ---
Author Organization [facility] Address [address] [facility] [facility] [address] [place] [address] Phone Care Team Providers Care Personal Banking Representative Name Role Phone Zulema Wasserman MD Primary Care Provider [phone] Encounter Details Date Type Department Care Team (Latest Contact Info) Description 10/04/2023 Office Communication [facility] [address] [facility] [facility] [address] [place] [phone] True Samaniego MD [address] [facility] [address] [place] [address] Stage 3b chronic kidney disease (HCC) (Primary Dx) Social History Tobacco Use Types Packs/Day Years Used Date Smoking Tobacco: Former Smokeless Tobacco: Never Comments:Smoking History Inf o:Every day Alcohol Use Standard Drinks/Week Comments No 0 (1 standard drink = 0.6 oz pur e alcohol) Comments Unknown Sex and Gender Information Value Date Recorded Sex Assigned at Not on file Legal Sex Female 4:51 PM EST Gender Identity Not on file Sexual Orientation Not on file documented as of this encounter Miscellaneous Notes * Telephone Encounter - True Samaniego MD - 10/04/2023 6:29 PM EDT Needs repeat labs in 2 wks documented in this encounter Plan of Treatment Upcoming Encounters Date Type Department Care Team (Late st Contact Info) Description 10/30/2024 8:00 AM EDT Office Visit [facility] [address] [phone] Emily Perez ARNP [address] [phone] Scheduled Orders Name Type Priority Associated Diagnoses Orde r Schedule Renal Function Panel Lab Routine Stage 3b chronic kidney disease (HCC) Expected: 10/18/2023, Expires: 11/03/2024 Urinalysis with microscopic Lab Routine Stage 3b chronic kidney disease (HCC) Expected: 10/18/2023, Expires: 11/03/2024 Urine Albumin / Creatinine Ratio Lab Routine Stage 3b chronic kidney disease (HCC) Expected: 10/18/2023, Expires: 11/03/2024 Protein, Total, Random Urine w/Creatinine (Protein/Creat Ratio) Lab Routine Stage 3b chronic kidney disease (HCC) Expected: 10/18/2023, Expires: 11/03/2024 Protime-INR Lab Routine Stage 3b chronic kidney disease (HCC) Expected: 10/18/2023, Expires: 11/03/2024 documented as of this encounter Visit Diagnoses Diagnosis Stage 3b chronic kidney disease (HCC)- Primary documented in this encounter Care Teams Personal Banking Representative Relationship Specialty Start Date End Date Zulema Wasserman MD [address] [place] [id number] PCP - General Family Medicine 03/14/23 documented as of this encounter
--- OUTSIDE RECORDS SUMMARY | 2024-10-03 11:08 | XMS_ITS | Clinical Summary ---
Author Organization [facility] Address [address] [place] [address] Phone Care Team Providers Care Heater Operator Name Role Phone Zulema Newberry MD Primary Care Provider [phone] Allergies No known active allergies Medications ferrous gluconate (FERGON) 324 mg (38 mg iron) tablet Take 1 tablet (324 mg total) by mouth 3 (three) times a week. 4 Active FLUoxetine (PROzac) 20 mg capsule Take 1 capsule (20 mg total) by mouth at bedtime as needed (Depression). 4 Active Lantus Solostar U-100 Insulin 100 unit/mL (3 mL) injection pen Inject 38 Units under the skin at bedtime. 5 Active Mounjaro 5 mg/0.5 mL injection Inject 0.5 mL (5 mg total) under the skin every 7 (seven) days. Mondays 5 Active lisinopriL (PRINIVIL,ZEST RIL) 10 mg tablet Take 1 tablet (10 mg total) by mouth 1 (one) time each day. 4 Active doxepin (SINEquan) 100 mg capsule Take 1 capsule (100 mg total) by mouth at bedtime. 2 Active zolpidem (AMBIEN) 10 mg tablet Take 1 tablet (10 mg total) by mouth at bedtime. 8 Active amLODIPine (NORVASC) 5 mg tablet Take 1 tablet (5 mg total) by mouth daily. 4 Active cholecalcifero l (VITAMIN D-3) 50 mcg (2,000 unit) capsule Take 1 capsule (2,000 Units total) by mouth 1 (one) time each day. 5 Active latanoprost (XALATAN) 0.005 % ophthalmic solution Administer 1 drop into both eyes at bedtime. 7 Active lidocaine (LIDODERM) 5 % patch Apply 1 patch topically 1 (one) time each day. 4 Active pantoprazole (PROTONIX) 40 mg EC tablet Take 1 tablet (40 mg total) by mouth 1 (one) time each day before breakfast. 5 Active rosuvastatin (CRESTOR) 40 mg tablet Take 1 tablet (40 mg total) by mouth at bedtime as needed. 2 Active timolol (TIMOPTIC) 0.5 % ophthalmic solution 1 drop 2 (two) times a day. 4 Active doxepin (SINEquan) 25 mg capsule Take 1 capsule (25 mg total) by mouth at bedtime. 5 Active clonazePAM (KlonoPIN) 1 mg tablet Take 1 tablet (1 mg total) by mouth 2 (two) times a day if needed for anxiety. Max Daily Amount: 2 mg 7 Active FLUoxetine (PROzac) 40 mg capsule Take 1 capsule (40 mg total) by mouth at bedtime as needed (Depression). 5 Active Eye Itch Relief 0.025 % (0.035 %) ophthalmic solution Administer 1 drop into both eyes 2 (two) times a day if needed (itching). 4 Active spironolactone (ALDACTONE) 25 mg tablet Take 1 tablet (25 mg total) by mouth 1 (one) time each day. 30 each 5 10/16/19 25 Active furosemide (LASIX) 20 mg tablet Take 1 tablet (20 mg total) by mouth 1 (one) time each day. 5 09/15/19 25 Discontinu ed(Stop Taking at Discharge) Jardiance 25 mg tablet Take 1 tablet (25 mg total) by mouth 1 (one) time each day in the morning. 4 09/13/19 25 Discontinu ed(Discont inued by another clinician) clonazePAM (KlonoPIN) 0.5 mg tablet Take 1 tablet (0.5 mg total) by mouth at bedtime. Max Daily Amount: 0.5 mg 09/13/19 25 Discontinu ed(Alterna te therapy) potassium chloride (KLOR-CON M10) 10 mEq CR tablet Take 1 tablet (10 mEq total) by mouth 1 (one) time each day for 5 days. Tablet may be swallowed whole (do not crush/chew/suc k on) OR broken in half and each half swallowed separately OR dissolved (whole tablet) in ~4 ounces of water (allow ~2 minutes to dissolve, stir well and administer immediately). 5 each 5 09/20/19 Active Problems Problem Noted Date Diagnosed Date Acute renal failure (CMS/[facility] V24) 09/11/2024 Hypokalemia 09/11/2024 Encounters Date Type Department Care Team Description 09/11/2024 6:55 PM EDT - 09/14/2024 12:50 PM EDT Hospital Encounter [facility] [address] [place] [address] Tray Waldron MD Seralathan, Manikandan, MD Acute renal failure, unspecified acute renal failure type (CMS/[facility] V24) (Primary Dx); Hypokalemia Discharge Disposition: Home or Self Care 09/10/2024 Telephone Internal Medicine - [facility] [address] [place] [address] Stacy Cao PA from Last 3 Months Surgical History Surgery Date Site/Laterality Comments GASTRIC BYPASS PROCEDURE: PA GASTRIC RSTCV W/BYP W/SM INT RCNSTJ LIMIT ABSRPJ OTHER SURGICAL HISTORY PROCEDURE: PA INSJ MESH/PROSTH PELVIC FLOOR DEFECT EACH SITE; COMMENT: sling Medical History Medical History Date Comments Diabetes mellitus (CMS/HCC V24, CMS/HCC V28) DX:Diabetes mellitus (HCC) HTN (hypertension) DX:HTN (hyper tension) Arthritis DX:Arthritis Fibromyalgia DX:Fibromyalgia Social History Tobacco Use Types Packs/Day Years Used Date Smoking Tobacco: Never Smokeless Tobacco: Never Tobacco Cessation:Counseling Given: Not Answered Alcohol Use Standard Drinks/Week Comments No 0 (1 standard drink = 0.6 oz pur e alcohol) Food Risk Answer Date Recorded Within the past 12 months we worried whether our food would run out before we got money to buy more. Never true 09/12/2024 Within the past 12 months th e food we bought just didn't last and we didn't have money to get more. Never true 09/12/2024 Interpersonal Safety Answer Date Record ed Physical Abuse 09/12/2024 Verbal Abuse 09/12/2024 Comments No Sex and Gender Information Value Date Recorded Sex Assigned at Female 03/16/2024 9:10 AM EDT Legal Sex Female 2:16 AM EST Gender Identity Female 03/16/2024 9:10 AM EDT Sexual Orientation Straight 03/16/2024 9: 10 AM EDT Obstetrics History Last Filed Vital Signs Vital Sign Reading Time Taken Comments Blood Pressure 135/62 09/14/2024 8:06 AM EDT Pulse 66 09/14/2024 8:06 AM EDT Temperature 36.2 ??C (97.2 ??F) 09/14/2024 8:06 AM ED T Respiratory Rate 16 09/14/2024 8:06 AM EDT Oxygen Saturation 100% 09/14/2024 8:06 AM EDT Inhaled Oxygen Concentration - - Weight 90.7 kg (200 lb) 09/11/2024 4:58 PM EDT Height 160 cm (5' 3 ) 09/12/2024 12:02 PM EDT Body Mass Index 35.43 09/11/2024 4:58 PM EDT Plan of Treatment Health Maintenance Due Date Last Done Comments Diabetes: Annual Foot Exam 1971 Diabetes: Annual Retina Eye Exam 1971 Cervical Cancer Screening: Pap Smear 1982 Colorectal Cancer Screening: Colonoscopy 04/17/2022 HIV Screening 04/17/2022 Medicare Annual Wellness Visit 04/17/2022 Depression Screening 02/02/2024 02/01/2023 Diabetes: Blood Sugar Control Test (HGBA1C) 09/02/2024 03/04/2024, 01/12/2024 Diabetes: Annual Urine Albumin-Creatinine Ratio (uACR) 12/21/2024 12/22/2023 Breast Cancer Screening 08/08/2025 08/09/19 24, 07/29/2022, 07/27/2021, Additional history exists Social Influencers of Health Screening 09/12/2025 09/12/2024 Diabetes: Annual GFR (Glomerular Filtration Rate) 09/19/2025 09/19/2024, 09/19/2024, 09/14/2024, Additional history exists Hypertension/CHF/CAD Annual BMP Blood Test 09/19/2025 09/19/2024, 09/19/2024, 09/14/2024, Additional history exists Cholesterol Screening (Lipid Panel) 02/03/2028 02/02/2023 DTaP,Tdap,and Td Vaccines (3 - Td or Tdap) 11/21/2028 11/21/2018, 12/21/2016 Hepatitis A Vaccines Aged Out 10/27/2016 No long er eligible based on patient's age to complete this topic Hepatitis B Vaccines Completed 10/27/2016, 05/26/2016, 04/28/2016 Zoster Vaccines Completed 05/03/2018, 02/02/2018 Pneumococcal Vaccine: 50+ Years Completed 01/27/2023, 03/22/2017 Pneumococcal Vaccine: Pediatrics (0 to 5 Years) and At-Risk Patients (6 to 64 Years) Completed 01/27/2023, 03/22/2017 RSV Immunization Adult Patients Completed 06/12/2023 Hepatitis C Screening Completed 01/19/2024 Influenza Vaccine Completed 02/05/2024, , 02/01/2022, Additional history exists COVID-19 Vaccine Completed 03/19/2024, , 03/29/2022, Additional history exists HIB Vaccines Aged Out No longer eligi ble based on patient's age to complete this topic HPV Vaccines Aged Out No longer eligi ble based on patient's age to complete this topic IPV Vaccines Aged Out No longer eligi ble based on patient's age to complete this topic MMR Vaccines Aged Out No longer eligi ble based on patient's age to complete this topic Meningococcal ACWY Vaccine Aged Out N o longer eligible based on patient's age to complete this topic Meningococcal B Vaccine Aged Out No l onger eligible based on patient's age to complete this topic RSV Immunization Patients Under 20 months Aged Out No longer eligible based on patient's age to complete this topic Varicella Vaccines Aged Out No longer eligible based on patient's age to complete this topic Procedures Procedure Name Priority Date/Time Associated Diagnosis Comments BASIC METABOLIC PANEL Routine 09/19/2024 10:40 AM EDT Acute renal failure, unspecified acute renal failure type ([facility] V24) Hypokalemia RENAL FUNCTION PANEL Routine 09/19/2024 10:40 AM EDT Chronic kidney disease (CKD) stage G3b/A1, moderately decreased glomerular filtration rate (GFR) between 30-44 mL/min/1.73 square meter and albuminuria creatinine ratio les* ([facility] V24, [facility] V28) 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, [facility] V28) Potassium deficiency POCT GLUCOSE BLOOD Routine 09/14/2024 9: 24 AM EDT CBC WITH AUTO DIFFERENTIAL Routine 09/14/2024 5:49 AM EDT CBC AND DIFFERENTIAL Routine 09/14/2024 5:49 AM EDT BASIC METABOLIC PANEL Routine 09/14/2024 5:49 AM EDT MAGNESIUM Routine 09/14/2024 5:49 AM EDT PHOSPHORUS Routine 09/14/2024 5:49 AM EDT POCT GLUCOSE BLOOD Routine 09/13/2024 8: 54 PM EDT POTASSIUM Routine 09/13/2024 7:30 PM EDT POCT GLUCOSE BLOOD Routine 09/13/2024 3: 11 PM EDT POCT GLUCOSE BLOOD Routine 09/13/2024 11 :16 AM EDT POCT GLUCOSE BLOOD Routine 09/13/2024 7: 23 AM EDT CBC WITH AUTO DIFFERENTIAL Routine 09/13/2024 5:42 AM EDT MAGNESIUM Routine 09/13/2024 5:42 AM EDT BASIC METABOLIC PANEL Routine 09/13/2024 5:42 AM EDT CBC AND DIFFERENTIAL Routine 09/13/2024 5:42 AM EDT ECG 12-LEAD STAT 09/12/2024 10:32 PM EDT POCT GLUCOSE BLOOD Routine 09/12/2024 7: 29 PM EDT CBC WITH AUTO DIFFERENTIAL Routine 09/12/2024 6:31 PM EDT CBC AND DIFFERENTIAL Routine 09/12/2024 6:31 PM EDT BASIC METABOLIC PANEL Routine 09/12/2024 6:31 PM EDT MAGNESIUM Routine 09/12/2024 6:31 PM EDT PHOSPHORUS Routine 09/12/2024 6:31 PM EDT POCT GLUCOSE BLOOD Routine 09/12/2024 4: 37 PM EDT POTASSIUM, URINE, RANDOM Routine 09/12/2024 4:37 PM EDT POCT GLUCOSE BLOOD Routine 09/12/2024 12 :45 PM EDT BASIC METABOLIC PANEL Routine 09/12/2024 11:59 AM EDT PLASMA RENIN ACTIVITY Routine 09/12/2024 11:59 AM EDT ALDOSTERONE Routine 09/12/2024 11:59 AM EDT CBC WITH AUTO DIFFERENTIAL Routine 09/12/2024 4:51 AM EDT MAGNESIUM Routine 09/12/2024 4:51 AM EDT CBC AND DIFFERENTIAL Routine 09/12/2024 4:51 AM EDT BASIC METABOLIC PANEL Routine 09/12/2024 4:51 AM EDT ECG ANNOTATED 09/12/2024 CT ABDOMEN PELVIS WO CONTRAST STAT 09/11/2024 9:24 PM EDT VENOUS BLOOD GAS STAT 09/11/2024 9:02 PM EDT POC GLUCOSE STAT 09/11/2024 8:49 PM EDT POCT GLUCOSE BLOOD Routine 09/11/2024 8: 41 PM EDT MILES URINE CULTURE TUBE STAT 09/11/2024 7:37 PM EDT URINALYSIS WITH REFLEX MICROSCOPIC AND CULTURE STAT 09/11/2024 7:37 PM EDT CREATININE, URINE, RANDOM STAT 09/11/2024 7:37 PM EDT SODIUM, URINE, RANDOM STAT 09/11/2024 7:37 PM EDT URINALYSIS WITH REFLEX MICROSCOPIC AND CULTURE STAT 09/11/2024 7:37 PM EDT ECG 12-LEAD STAT 09/11/2024 6:54 PM EDT BETA HYDROXYBUTYRATE Add-On 09/11/2024 5:35 PM EDT VITAMIN B12 AND FOLATE Add-On 5:35 PM EDT MAGNESIUM Add-On 09/11/2024 5:35 PM EDT CBC WITH AUTO DIFFERENTIAL STAT 09/11/2024 5:35 PM EDT COMPREHENSIVE METABOLIC PANEL STAT 09/11/2024 5:35 PM EDT CBC AND DIFFERENTIAL STAT 09/11/2024 5:35 PM EDT CBC WITH AUTO DIFFERENTIAL Routine 09/09/2024 9:58 AM EDT Stage 3b chronic kidney disease ([facility]/HCC V24, CMS/HCC V28) CBC AND DIFFERENTIAL Routine 09/09/2024 9:58 AM EDT Stage 3b chronic kidney disease (CMS/HCC V24, CMS/HCC V28) RENAL FUNCTION PANEL Routine 09/09/2024 9:58 AM EDT Stage 3b chronic kidney disease (CMS/HCC V24, CMS/HCC V28) ELDON SCREENING DIGITAL Routine 08/09/2023 10:25 AM EDT Encounter for screening mammogram for malignant neoplasm of breast from Last 3 Months or Most Recently Relevant to Health Maintenance Results * (ABNORMAL) Renal function panel (09/19/2024 10:40 AM EDT) Only the most recent of2 resultswithin the time period is included. Sodium 141 133 - 145 mmol/L LAB CHEMISTRY METHOD 09/19/2024 12:[address] [facility] Potassium 4.3 3.5 - 5.5 mmol/L LAB CHEMISTRY METHOD 09/19/2024 12:[address] [facility] Chloride 105 96 - 110 mmol/L LAB CHEMISTRY METHOD 09/19/2024 12:[address] [facility] CO2 26 21 - 32 mmol/L LAB CHEMISTRY METHOD 09/19/2024 12:[address] [facility] Anion Gap 10 3 - 11 LAB CHEMISTRY METHOD 09/19/2024 12:[address] [facility] Glucose 200(H) 70 - 100 mg/dL LAB CHEMISTRY METHOD 09/19/2024 12:[address] [facility] BUN 14 5 - 25 mg/dL LAB CHEMISTRY METHOD 09/19/2024 12:38 PM EDT [facility] Creatinine 1.62(H) 0.50 - 1.10 mg/dL LAB CHEMISTRY METHOD 09/19/2024 12:38 PM EDT [facility] eGFR 36(L) >=60 mL/min/1. 73m2 LAB CHEMISTRY METHOD 09/19/2024 12:38 PM EDT [facility] Comment:Calculation based on the Chronic Kidney Disease Epidemiology Collaboration (CKD-EPI) equation refit without adjustment for race. BUN/Creatinine Ratio 8.6 LAB CHEMISTRY METHOD 09/19/2024 12:38 PM EDT [facility] Albumin 2.9(L) 3.2 - 5.0 g/dL LAB CHEMISTRY METHOD 09/19/2024 12:38 PM EDT [facility] Calcium 8.8 8.5 - 10.5 mg/dL LAB CHEMISTRY METHOD 09/19/2024 12:38 [facility] Phosphorus 3.2 2.5 - 4.5 mg/dL LAB CHEMISTRY METHOD 09/19/2024 12:[address] [facility] Blood Venous blood specimen / Unknown Venipuncture / Unknown 09/19/2024 10:40 AM EDT 09/19/2024 11:15 AM EDT us True Samaniego MD LAB BLOOD ORDERABLES Final Re sult [facility] [address] [place] [address], * (ABNORMAL) Basic metabolic panel (09/19/2024 10:40 AM EDT) Only the most recent of6 resultswithin the time period is included. Sodium 140 133 - 145 mmol/L LAB CHEMISTRY METHOD 09/19/2024 1:02 PM EDT [facility] Potassium 4.3 3.5 - 5.5 mmol/L LAB CHEMISTRY METHOD 09/19/2024 1:[address] [facility] Chloride 105 96 - 110 mmol/L LAB CHEMISTRY METHOD 09/19/2024 1:[address] [facility] CO2 27 21 - 32 mmol/L LAB CHEMISTRY METHOD 09/19/2024 1:[address] [facility] Anion Gap 8 3 - 11 LAB CHEMISTRY METHOD 09/19/2024 1:[address] [facility] Glucose 196(H) 70 - 100 mg/dL LAB CHEMISTRY METHOD 09/19/2024 1:[address] [facility] BUN 14 5 - 25 mg/dL LAB CHEMISTRY METHOD 09/19/2024 1:[address] [facility] Creatinine 1.64(H) 0.50 - 1.10 mg/dL LAB CHEMISTRY METHOD 09/19/2024 1:[address] [facility] eGFR 35(L) >=60 mL/min/1. 73m2 LAB CHEMISTRY METHOD 09/19/2024 1:[address] [facility] Comment:Calculation based on the Chronic Kidney Disease Epidemiology Collaboration (CKD-EPI) equation refit without adjustment for race. BUN/Creatinine Ratio 8.5 LAB CHEMISTRY METHOD 09/19/2024 1:[address] [facility] Calcium 8.9 8.5 - 10.5 mg/dL LAB CHEMISTRY METHOD 09/19/2024 1:[address] [facility] Blood Venous blood specimen / Unknown Venipuncture / Unknown 09/19/2024 10:40 AM EDT 09/19/2024 11:19 AM EDT Gerson Dunlap MD LAB BLOOD ORDERABLES Fi nal Result [facility] [address] [place] [address], * (ABNORMAL) POCT Glucose, blood (09/14/2024 9:24 AM EDT) Only the most recent of9 resultswithin the time period is included. [facility] Glucose POCT 174(H) 70 - 100 mg/dL 09/14/2024 9:25 AM EDT [facility] Blood Capillary blood specimen / Unknown 09/14/2024 9:24 AM EDT 09/14/2024 9:26 AM EDT Gerson Dunlap MD LAB POINT OF CA RE TEST DOCKED DEVICE UNSOLICITED RESULTS Final Result [facility] [address] [place] [address], [place] [phone] * (ABNORMAL) CBC auto differential (09/14/2024 5:49 AM EDT) Only the most recent of6 resultswithin the time period is included. [facility] WBC 8.3 4.8 - 10.8 K/mcL LAB HEMETOLOGY METHOD 09/14/2024 6:18 AM EDT [facility] RBC 3.60(L) 3.80 - 4.80 M/mcL LAB HEMETOLOGY METHOD 09/14/2024 6:[address] [facility] Hemoglobin 9.5(L) 11.5 - 16.0 g/dL LAB HEMETOLOGY METHOD 09/14/2024 6:18 AM EDT [facility] Hematocrit 30.3(L) 35.0 - 47.0 % LAB HEMETOLOGY METHOD 09/14/2024 6:18 AM EDT [facility] MCV 84.9 79.0 - 98.0 FL LAB HEMETOLOGY METHOD 09/14/2024 6:[address] [facility] MCH 26.6(L) 27.0 - 32.0 pcg LAB HEMETOLOGY METHOD 09/14/2024 6:[address] [facility] MCHC 31.4(L) 32.0 - 37.0 g/dL LAB HEMETOLOGY METHOD 09/14/2024 6:[address] [facility] RDW 15.9(H) 11.0 - 15.0 % LAB HEMETOLOGY METHOD 09/14/2024 6:[address] [facility] Platelets 266 130 - 400 K/mcL LAB HEMETOLOGY METHOD 09/14/2024 6:[address] [facility] MPV 9.9 7.0 - 11.0 FL LAB HEMETOLOGY METHOD 09/14/2024 6:[address] [facility] NRBC 0.0 <1.0 % LAB HEMETOLOGY METHOD 09/14/2024 6:[address] [facility] NRBC Absolute 0.00 <0.10 K/mcL LAB HEMETOLOGY METHOD 09/14/2024 6:[address] [facility] Neutrophils Relative 47.0 % LAB HEMETOLOGY METHOD 09/14/2024 6:[address] [facility] Lymphocytes Relative 45.0 % LAB HEMETOLOGY METHOD 09/14/2024 6:[address] [facility] Monocytes Relative 4.1 % LAB HEMETOLOGY METHOD 09/14/2024 6:[address] [facility] Eosinophils Relative 3.2 % LAB HEMETOLOGY METHOD 09/14/2024 6:[address] [facility] Basophils Relative 0.5 % LAB HEMETOLOGY METHOD 09/14/2024 6:[address] [facility] Immature Granulocytes Relative 0.2 % LAB HEMETOLOGY METHOD 09/14/2024 6:[address] [facility] Neutrophils Absolute 3.88 1.50 - 7.00 K/mcL LAB HEMETOLOGY METHOD 09/14/2024 6:18 AM EDT [facility] Lymphocytes Absolute 3.71 1.00 - 5.00 K/mcL LAB HEMETOLOGY METHOD 09/14/2024 6:18 AM EDT [facility] Monocytes Absolute 0.34 0.20 - 1.00 K/[facility] LAB HEMETOLOGY METHOD 09/14/2024 6:18 AM EDT [facility] Eosinophils Absolute 0.26 0.00 - 0.50 K/[facility] LAB HEMETOLOGY METHOD 09/14/2024 6:18 AM EDT [facility] Basophils Absolute 0.04 0.00 - 0.20 K/[facility] LAB HEMETOLOGY METHOD 09/14/2024 6:18 AM EDT [facility] Immature Granulocytes Absolute 0.02 0.00 - 0.03 K/[facility] LAB HEMETOLOGY METHOD 09/14/2024 6:18 AM EDT [facility] Blood Venous blood specimen / Unknown Venipuncture / Unknown 09/14/2024 5:49 AM EDT 09/14/2024 6:10 AM EDT Gerson Dunlap MD LAB BLOOD ORDERABLES Fi nal Result [facility] [address] [place] [address], * (ABNORMAL) Phosphorus (09/14/2024 5:49 AM EDT) Only the most recent of2 resultswithin the time period is included. Phosphorus 1.9(L) 2.5 - 4.5 mg/dL LAB CHEMISTRY METHOD 09/14/2024 6:47 AM EDT [facility] Blood Venous blood specimen / Unknown Venipuncture / Unknown 09/14/2024 5:49 AM EDT 09/14/2024 6:10 AM EDT us Gerson Dunlap MD LAB BLOOD ORDERABLES Fi nal Result Performing Organization Address City/[facility]/ZIP Co de Phone Number [facility] [address] [place] [address], [place] [phone] * Magnesium (09/14/2024 5:49 AM EDT) Only the most recent of5 resultswithin the time period is included. Pathologist [facility] Magnesium 2.2 1.9 - 2.6 mg/dL LAB CHEMISTRY METHOD 09/14/2024 6:47 AM EDT [facility] Blood Venous blood specimen / Unknown Venipuncture / Unknown 09/14/2024 5:49 AM EDT 09/14/2024 6:10 AM EDT us Gerson Dunlap MD LAB BLOOD ORDERABLES Fi nal Result Performing Organization Address [facility]/ZIP Co de Phone Number [facility] [address] [place] [address], [place] [phone] * (ABNORMAL) Potassium (09/13/2024 7:30 PM EDT) [facility] Potassium 3.4(L) 3.5 - 5.5 mmol/L LAB CHEMISTRY METHOD 09/13/2024 7:58 PM EDT [facility] Blood Venous blood specimen / Unknown Venipuncture / Unknown 09/13/2024 7:30 PM EDT 09/13/2024 7:34 PM EDT us Gerson Dunlap MD LAB BLOOD ORDERABLES Fi nal Result Performing Organization Address City/[facility]/ZIP Co de Phone Number [facility] [address] [place] [address], [place] [phone] * ECG 12 lead (09/12/2024 10:32 PM EDT) Only the most recent of2 resultswithin the time period is included. Ventricular Rate ECG 56 BPM [facility] Atrial Rate 56 BPM [facility] P-R Interval 148 ms GEMUSE QRS Duration 86 ms GEMUSE Q-T Interval 450 ms GEMUSE QTc 434 ms GEMUSE P Wave Reeves 49 degrees GEMUSE R Reeves 28 degrees GEMUSE T Reeves 45 degrees GEMUSE ECG Interpretation Sinus bradycardia Otherwise normal ECG When compared with ECG of 11-SEP-2024 18:54, No significant change was found Confirmed by DENISA ARMSTRONG ([id number]) on 09/14/2024 7:01:14 AM G[facility] 09/12/2024 10:3 2 PM EDT 09/14/2024 7:01 AM EDT Gerson Dunlap MD ECG ORDERABLES Final R esult Performing Organization Address City/[facility]/ZIP Co de Phone Number [facility] * Potassium, urine, random (09/12/2024 4:37 PM EDT) Pathologist [facility] Potassium, Ur 21.0 mmol/L LAB CHEMISTRY METHOD 09/12/2024 6:33 PM EDT [facility] Urine Urine specimen obtained by clean catch procedure / Unknown Non-blood Collection / Unknown 09/12/2024 4:37 PM EDT 09/12/2024 5:56 PM EDT Reji Trevizo MD LAB URINE ORDERABLES Final Resu lt [facility] [address] [place] [address], [place] [phone] * Plasma renin activity (09/12/2024 11:59 AM EDT) RENIN ACTIVITY, PLASMA 1.190 0.167 - 5.380 ng/mL/hr 09/16/2024 11:05 AM EDT [facility] Blood Venous blood specimen / Unknown Venipuncture / Unknown 09/12/2024 11:59 AM EDT 09/12/2024 12:26 PM EDT Narrative [facility] - 09/16/2024 11:05 AM EDT Test(s) [id number] Activity, Plasma was developed and its performance characteristics determined by [facility]. It has not been cleared or approved by the Food and Drug Administration. Performed at: ??01 - [facility] [address] ??[id number] Consulting Senior Practice Director: Marcelina Chan MD, Phone: ??[phone] Reji Trevizo MD LAB BLOOD ORDERABLES Final Resu lt Performing Organization Address [facility] de Phone Number [facility] * Aldosterone (09/12/2024 11:59 AM EDT) [facility] Aldosterone 8.3 ng/dL 09/16/2024 9:35 PM EDT [facility] Comment: REFERENCE RANGE: Upright ?<= 39.2 ng/dL ?? Supine ? <= 23.2 ng/dL Test performed at [facility], [address] [place], [place] ??[address] ? [phone] Danya Corey MD, PhD - Marine Reporter Blood Venous blood specimen / Unknown Venipuncture / Unknown 09/12/2024 11:59 AM EDT 09/12/2024 12:26 PM EDT Reji Trevizo MD LAB BLOOD ORDERABLES Final Resu lt Performing Organization Address [facility] Co de Phone Number [facility] [address] [place] [address] * ECG-Annotated (09/12/2024) Provider Onbase ECG ORDERABLES Final Result * CT Abdomen Pelvis wo Contrast (09/11/2024 9:24 PM EDT) Anatomical Region Laterality Modality Body Computed Tomogra phy 09/11/2024 10:0 4 PM EDT Impressions 09/11/2024 10:04 PM EDT Impression: No acute processes This document has been electronically signed by: Kevin Kamara MD on 09/11/2024 22:04:22 Narrative 09/11/2024 10:04 PM EDT INDICATION: acute renal failure CT abdomen and pelvis without contrast Comparison: None Findings: Lung bases clear. No acute bony abnormality. Liver and spleen within normal limits. Pancreas and adrenal glands unremarkable. Cholecystectomy. No bilateral renal stone or hydronephrosis. No focal renal abnormality or ureteral dilation. No evidence for aortic aneurysm. No free fluid or adenopathy in the pelvis. No diverticulitis. Appendix not identified. Uterus normal size. No adnexal abnormality. Procedure Note Kevin Kamara MD - 09/11/2024 INDICATION: acute renal failure CT abdomen and pelvis without contrast Comparison: None Findings: Lung bases clear. No acute bony abnormality. Liver and spleen within normal limits. Pancreas and adrenal glands unremarkable. Cholecystectomy. No bilateral renal stone or hydronephrosis. No focal renal abnormality or ureteral dilation. No evidence for aortic aneurysm. No free fluid or adenopathy in the pelvis. No diverticulitis. Appendix not identified. Uterus normal size. No adnexal abnormality. IMPRESSION: Impression: No acute processes This document has been electronically signed by: Kevin Kamara MD on 09/11/2024 22:04:22 Mark BURGESS [facility] [place] CT PROCEDURES Final R esult * (ABNORMAL) Venous blood gas (09/11/2024 9:02 PM EDT) pH, Dmitry 7.49(H) 7.32 - 7.42 pH 09/11/2024 9:14 PM EDT [facility] pCO2, Dmitry 58(H) 41 - 51 mmHg 09/11/2024 9:14 PM EDT [facility] pO2, Dmitry 25 25 - 40 mmHg 09/11/2024 9:14 PM EDT [facility] HCO3, Venous 37.9(H) 22.0 - 26.0 mmol/L 09/11/2024 9:14 PM EDT [facility] O2 Sat, Dmitry 35.5 % 09/11/2024 9:14 PM EDT [facility] Base Excess, Dmitry 18.3(H) -2.0 - 2.0 mmol/L 09/11/2024 9:14 PM EDT [facility] Blood Venous blood specimen / Unknown Venipuncture / Unknown 09/11/2024 9:02 PM EDT 09/11/2024 9:10 PM EDT Mark BURGESS [facility] BLOOD ORDERABLES Salome l Result [facility] [address] [place] [address], * (ABNORMAL) POCT glucose manually resulted (09/11/2024 8:49 PM EDT) [facility] Glucose POC 252(A) 70 - 110 mg/dL Blood Capillary blood specimen / Unknown 09/11/2024 8:49 PM EDT Mark BURGESS POINT OF CARE TEST ENTER/ EDIT ORDERABLES Final Result * (ABNORMAL) Urinalysis with reflex microscopic and culture (09/11/2024 7:37 PM EDT) [facility] Specific [place] Urine 1.013 1.003 - 1.030 LAB URINALYSIS - AUTOMATED METHOD 09/11/2024 8:46 PM EDT [facility] pH, Urine 7.0 5.0 - 8.0 pH LAB URINALYSIS - AUTOMATED METHOD 09/11/2024 8:46 PM EDT [facility] Leukocytes, Urine Negative Negative LAB URINALYSIS - AUTOMATED METHOD 09/11/2024 8:46 PM EDT [facility] Nitrite, Urine Negative Negative LAB URINALYSIS - AUTOMATED METHOD 09/11/2024 8:[address] [facility] Protein, Urine 100(A) <=Trace mg/dL LAB URINALYSIS - AUTOMATED METHOD 09/11/2024 8:[address] [facility] Glucose, Urine >=1000(A) Negative mg/dL LAB URINALYSIS - AUTOMATED METHOD 09/11/2024 8:[address] [facility] Ketones, Urine Negative Negative mg/dL LAB URINALYSIS - AUTOMATED METHOD 09/11/2024 8:[address] [facility] Urobilinogen , Urine 0.2 0.2 - 1.0 mg/dL LAB URINALYSIS - AUTOMATED METHOD 09/11/2024 8:[address] [facility] Bilirubin, Urine Negative Negative LAB URINALYSIS - AUTOMATED METHOD 09/11/2024 8:[address] [facility] Blood, Urine Small(A) Negative LAB URINALYSIS - AUTOMATED METHOD 09/11/2024 8:[address] [facility] RBC, Urine 0.5 0 - 4 /HPF LAB URINALYSIS - AUTOMATED METHOD 09/11/2024 8:[address] [facility] WBC, Urine 2.6 0 - 4 /HPF LAB URINALYSIS - AUTOMATED METHOD 09/11/2024 8:[address] [facility] Squamous Epithelial, Urine 76(H) 0 - 60 /LPF LAB URINALYSIS - AUTOMATED METHOD 09/11/2024 8:[address] [facility] Bacteria, Urine Negative Negative /HPF LAB URINALYSIS - AUTOMATED METHOD 09/11/2024 8:[address] [facility] Hyaline Casts, Urine 1.2 0 - 3 /LPF LAB URINALYSIS - AUTOMATED METHOD 09/11/2024 8:[address] [facility] Urine Urine specimen obtained by clean catch procedure / Unknown Non-blood Collection / Unknown 09/11/2024 7:37 PM EDT 09/11/2024 8:24 PM EDT Mark [facility] URINE ORDERABLES Saloem l Result Performing Organization Address [facility]/ZIP Co de Phone Number [facility] [address] [place] [address], [place] [phone] * Miles urine culture tube (09/11/2024 7:37 PM EDT) Extra Tube Hold for add-ons. 09/11/2024 10:03 PM EDT [facility] Comment:Auto resulted. Urine Urine specimen obtained by clean catch procedure / Unknown Non-blood Collection / Unknown 09/11/2024 7:37 PM EDT 09/11/2024 8:24 PM EDT Mark BURGESS [facility] URINE ORDERABLES Salome l Result Performing Organization Address [facility] Co de Phone Number [facility] [address] [place] [address], [place] [phone] * Sodium, urine, random (09/11/2024 7:37 PM EDT) Pathologist [facility] Sodium, Ur 37 mmol/L LAB CHEMISTRY METHOD 09/11/2024 10:00 PM EDT [facility] Urine Urine specimen obtained by clean catch procedure / Unknown Non-blood Collection / Unknown 09/11/2024 7:37 PM EDT 09/11/2024 8:24 PM EDT Mark BURGESS LAB URINE ORDERABLES Salome l Result Performing Organization Address City/[facility]/ZIP Co de Phone Number [facility] [address] [place] [address], [place] [phone] * Creatinine, urine, random (09/11/2024 7:37 PM EDT) Creatinine, Urine 43.0 mg/dL LAB CHEMISTRY METHOD 09/11/2024 10:00 PM EDT [facility] Urine Urine specimen obtained by clean catch procedure / Unknown Non-blood Collection / Unknown 09/11/2024 7:37 PM EDT 09/11/2024 8:24 PM EDT Mark BURGESS [facility] URINE ORDERABLES Salome l Result Performing Organization Address City/[facility]/ZIP Co de Phone Number [facility] [address] [place] [address], [place] [phone] * Vitamin B12 and folate (09/11/2024 5:35 PM EDT) Pathologist [facility] Vitamin B-12 528 250 - 900 pcg/mL LAB CHEMISTRY METHOD 09/11/2024 9:40 PM EDT [facility] Folate 5.4 2.8 - 17.0 ng/ml LAB CHEMISTRY METHOD 09/11/2024 9:40 PM EDT [facility] Blood Venous blood specimen / Unknown Venipuncture / Unknown 09/11/2024 5:35 PM EDT 09/11/2024 5:55 PM EDT Mark BURGESS [facility] BLOOD ORDERABLES Salome l Result Performing Organization Address City/[facility]/ZIP Co de Phone Number [facility] [address] [place] [address], [place] [phone] * Beta hydroxybutyrate (09/11/2024 5:35 PM EDT) Beta-Hydroxybu tyrate 1.7 0.2 - 2.8 mg/dL LAB CHEMISTRY METHOD 09/11/2024 9:17 PM EDT [facility] Blood Venous blood specimen / Unknown Venipuncture / Unknown 09/11/2024 5:35 PM EDT 09/11/2024 5:55 PM EDT us Mark BURGESS LAB BLOOD ORDERABLES Salome l Result [facility] [address] [place] [address], [place] [phone] * (ABNORMAL) Comprehensive metabolic panel (09/11/2024 5:35 PM EDT) Sodium 133 133 - 145 mmol/L LAB CHEMISTRY METHOD 09/11/2024 6:36 PM EDT [facility] Potassium 2.4(LL) 3.5 - 5.5 mmol/L LAB CHEMISTRY METHOD 09/11/2024 6:[address] [facility] Chloride 90(L) 96 - 110 mmol/L LAB CHEMISTRY METHOD 09/11/2024 6:[address] [facility] CO2 32 21 - 32 mmol/L LAB CHEMISTRY METHOD 09/11/2024 6:36 PM T [facility] Anion Gap 11 3 - 11 LAB CHEMISTRY METHOD 09/11/2024 6:[address] [facility] Glucose 414(HH) 70 - 100 mg/dL LAB CHEMISTRY METHOD 09/11/2024 6:[address] [facility] BUN 23 5 - 25 mg/dL LAB CHEMISTRY METHOD 09/11/2024 6:36 PM T [facility] Creatinine 2.65(H) 0.50 - 1.10 mg/dL LAB CHEMISTRY METHOD 09/11/2024 6:[address] [facility] eGFR 20(L) >=60 mL/min/1. 73m2 LAB CHEMISTRY METHOD 09/11/2024 6:[address] [facility] Comment:Calculation based on the??Chronic Kidney Disease Epidemiology Collaboration (CKD-EPI) equation refit??without adjustment for race. BUN/Creatinine Ratio 8.7 LAB CHEMISTRY METHOD 09/11/2024 6:36 PM EDT [facility] Calcium 9.1 8.5 - 10.5 mg/dL LAB CHEMISTRY METHOD 09/11/2024 6:36 PM EDT [facility] AST (SGOT) 46(H) 10 - 42 unit/L LAB CHEMISTRY METHOD 09/11/2024 6:36 PM EDT [facility] ALT (SGPT) 51 10 - 60 unit/L LAB CHEMISTRY METHOD 09/11/2024 6:36 PM EDT [facility] Alkaline Phosphatase 145(H) 42 - 121 unit/L LAB CHEMISTRY METHOD 09/11/2024 6:36 PM EDT [facility] Total Protein 7.4 6.0 - 8.0 g/dL LAB CHEMISTRY METHOD 09/11/2024 6:[address] [facility] Albumin 3.5 3.2 - 5.0 g/dL LAB CHEMISTRY METHOD 09/11/2024 6:36 PM EDT [facility] Total Bilirubin 0.6 0.0 - 1.4 mg/dL LAB CHEMISTRY METHOD 09/11/2024 6:36 PM EDT [facility] Blood Venous blood specimen / Unknown Venipuncture / Unknown 09/11/2024 5:35 PM EDT 09/11/2024 5:55 PM EDT Tray Waldron MD LAB BLOOD ORDERABLES Salome tim Result [facility] [address] [place] [address], * ELDON SCREENING DIGITAL (08/09/2023 10:25 AM EDT) Anatomical Region Laterality Modality Mammography 08/09/2023 8:22 AM EDT Narrative 08/09/2023 10:25 AM EDT [facility] Diagnostic Imaging Department [address] [place] [address] Patient: ??MAURIZIO BURRELL ?/Age/Sex: 1960 - 63 - F Unit#: ??[id number] ? Location/Status: ??SPDIMAM/REG CLI ? Mnemonic/Ordering Site: ??DIGSC/SPMAM Ordering Physician: ??ZULEMA NEWBERRY MD [facility] Screening Digital - 08/09/23 - 0848 Report Status:Signed EXAM: [facility] Screening Digital EXAM DATE AND TIME: 08/09/2023 8:48 AM HISTORY: ??Screening. Maternal aunt had breast carcinoma. COMPARISON: ??07/29/22, 07/27/21, 07/25/20 TECHNIQUE: Bilateral digital breast tomosynthesis was performed in the CC and MLO projections. Computer aided detection with GOWEX 3D 3.1 was employed. TISSUE DENSITY: b. There are scattered areas of fibroglandular density. FINDINGS: No suspicious masses, grouped microcalcifications, or areas of architectural distortion are seen. Multiple skin calcifications are again seen. The vascularity is unremarkable. IMPRESSION: Stable mammographic appearance of the breasts. ??No evidence of malignancy is seen. A negative mammogram in the presence of a clinically suspicious palpable abnormality does not preclude the possibility of malignancy or alter the indic ations for biopsy. BI-RADS: ??Category 2: Benign RECOMMENDATION(S): 1: Routine screening mammogram BILATERAL in 1 year. Dictating Physician: ??BRYANNA CASTANON MD Electronically Signed by: ??BRYANNA CASTANON MD Dic Date/Time: ??08/09/23 1025 Sign date/Time: ??08/09/23 1025 Procedure Note Bryanna Castanon MD - 01/01/2024 [facility] Diagnostic Imaging Department [address] [place] [id number] Patient: MAURIZIO BURRELL D.O.B./Age/Sex: 1960 - 63 - F Unit#: [id number] Location/Status: [facility] CLI Mnemonic/Ordering Site: [facility] Ordering Physician: ZULEMA NEWBERRY MD [facility] Screening Digital - 08/09/23 - 0848 Report Status:Signed EXAM: [facility] Screening Digital EXAM DATE AND TIME: 08/09/2023 8:48 AM HISTORY: Screening. Maternal aunt had breast carcinoma. COMPARISON: 07/29/22, 07/27/21, 07/25/20 TECHNIQUE: Bilateral digital breast tomosynthesis was performed in the CCand MLO projections. Computer aided detection with GOWEX 3D 3.1was employed. TISSUE DENSITY: b. There are scattered areas of fibroglandular density. FINDINGS: No suspicious masses, grouped microcalcifications, or areas ofarchitectural distortion are seen. Multiple skin calcifications are again seen. The vascularity is unremarkable. IMPRESSION: Stable mammographic appearance of the breasts. No evidence of malignancyis seen. A negative mammogram in the presence of a clinically suspicious palpable abnormality does not preclude the possibility of malignancy or alter theindic ations for biopsy. BI-RADS: Category 2: Benign RECOMMENDATION(S): 1: Routine screening mammogram BILATERAL in 1 year. Dictating Physician: BRYANNA CASTANON MD Electronically Signed by: BRYANNA CASTANON MD Dic Date/Time: 08/09/23 1025 Sign date/Time: 08/09/23 1025 us Zulema Newberry MD IMG BI PROCEDURES Final Resul t from Last 3 Months or Most Recently Relevant to Health Maintenance Insurance [employer] MEDICARE Member Subscriber Plan / Payer (Ef fective 2016-Present) Name:Maurizio Burrell Relation to Subscriber:Self Name:Burrell Maurizio Payer ID:[id number] Group ID:[id number] Type:Not on file Address: [place] [address] [address] [id number] Advance Directives * Full Code - Confirmed (Latest Code Status on File) Date Activated Date Inactivated Comments 09/12/2024 7:07 AM 09/14/2024 3:01 PM This code stat us was ascertained in the following way: Code status discussion: discussion with patient To update the patient's code status, place a code status order. Do not modify or discontinue any currently active code status orders. * Full Code - Default Date Activated Date Inactivated Comments 09/11/2024 10:39 PM 09/12/2024 7:07 AM This is orde r is used when code status has not been discussed with the patient, or code status is otherwise unknown/unconfirmed To update the patient's code status, place a code status order. Do not modify or discontinue any currently active code status orders. Care Teams Heater Operator Relationship Specialty Start Date End Date Zulema Newberry MD [address] [place] [phone] PCP - General 08/22/23
--- OUTSIDE RECORDS SUMMARY | 2024-10-03 11:09 | XMS_ITS | Encounter Summary ---
Author Organization [employer] Address [address] [facility] [address] [place] [address] Care Team Providers Care Insurance Processor Name Role Phone Zulema Wasserman MD Primary Care Provider Encounter Details Date Type Department Care Team ([facility] st Contact Info) Description 05/09/2024 Orders Only [facility] [address] [place], [place] [phone] Provider, MD Estuardo Social History Tobacco Use [...] Procedure Name Priority Date/Time Associated Diagnosis Comments HM COLONOSCOPY Routine 05/09/2024 9:15 AM EST documented in this encounter Results * Hm Colonoscopy (05/09/2024 9:15 AM EST) us Historical Provider HEALTH MAINTENANCE Final Result documented in this encounter Visit Diagnoses Not on filedocumented in this encounter Additional Health Concerns Assessment Noted Time PHQ-9 Depression Total Score: 023 10:05 AM EDT documented as of this encounter Care Teams Insurance Processor Relationship Specialty Start Date End Date Zulema Wasserman MD [address] [place] [address] PCP - General Family Medicine 02/10/21 Ashley Orosco Psychiatrist 01/27/23 Alexis 04/25/23 documented as of this encounter
--- OUTSIDE RECORDS SUMMARY | 2024-10-03 11:09 | XMS_ITS | Encounter Summary ---
Author Organization [employer] Address [address] [facility] 7t [place] [address] Care Team Providers Care Solar Panel Installation Supervisor Name Role Phone Zulema Wasserman MD Primary Care Provider [phone] Encounter Details Date Type Department Care Team (Late st Contact Info) Description 09/12/2024 Orders Only [facility] CHC MED & PEDS [address] [place], [place] [id number] Provider, MD Estuardo Social History Tobacco Use [...] Procedure Name Priority Date/Time Associated Diagnosis Comments CT ABDOMEN PELVIS WO CONTRAST Routine 09/11/2024 12:28 PM EDT documented in this encounter Results * CT Abdomen Pelvis w/o Contrast (09/11/2024 12:28 PM EDT) Anatomical Region Laterality Modality Body, Pelvis, Abdomen Computed T omography Historical Provider MD GUPTA CT PROCEDURES Final R esult documented in this encounter Visit Diagnoses Not on filedocumented in this encounter Additional Health Concerns Assessment Noted Time PHQ-9 Depression Total Score: 23 023 10:05 AM EDT documented as of this encounter Care Teams Solar Panel Installation Supervisor Relationship Specialty Start Date End Date Zulema Wasserman MD [address] [place] [address] PCP - General Family Medicine 02/10/21 Ashley Orosco Psychiatrist 01/27/23 Alexis 04/25/23 documented as of this encounter
--- OUTSIDE RECORDS SUMMARY | 2024-10-03 11:09 | XMS_ITS | Encounter Summary ---
Author Organization [employer] Address [address] [facility] [address] [place] [address] Care Team Providers Care Vice President Of Nursing Name Role Phone Zulema Wasserman MD Primary Care Provider [phone] Reason for Visit * Reason Onset Date Comments Referral 05/28/2024 Encounter Details Date Type Department Care Team ([facility] st Contact Info) Description 05/28/2024 Telephone [facility] CHC MED & PEDS [address] [place], [place] [phone] Zulema Wasserman MD [address] [place] [address] Referral Social History Tobacco Use Types Packs/Day Years [...] encounter Miscellaneous Notes * Telephone Encounter - Cristiana Nunes - 05/28/2024 1:49 PM EST Tc from pt requesting an appt with pcp. States needs a new referral to a merchandise planning manager specialist due to old facility closing. documented in this encounter Plan of Treatment Not on file documented as of this encounter Visit Diagnoses Not on filedocumented in this encounter Additional Health Concerns Assessment Noted Time PHQ-9 Depression Total Score: 23 023 10:05 AM EDT documented as of this encounter Care Teams Vice President Of Nursing Relationship Specialty Start Date End Date Zulema Wasserman MD [address] [place] [address] PCP - General Family Medicine 02/10/21 Ashley Orosco Psychiatrist 01/27/23 Alexis 04/25/23 documented as of this encounter
--- OUTSIDE RECORDS SUMMARY | 2024-10-03 11:09 | XMS_ITS | Encounter Summary ---
Author Organization [employer] Address [address] [facility] [address] [place] [address] Care Team Providers Care Screen Machine Operator Name Role Phone Zulema Wasserman MD Primary Care Provider [phone] Reason for Visit * Reason Onset Date Comments Appointment Request 09/04/2024 Encounter Details Date Type Department Care Team ([facility] st Contact Info) Description 09/04/2024 Telephone [facility] MEDICINE [address] [place] [address] Zulema Wasserman MD [address] [place] [address] Appointment Request Social History Tobacco Use Types [...] encounter Miscellaneous Notes * Telephone Encounter - Alisha Corona - 09/04/2024 1:36 PM EDT Tc from [facility] Wire Sawyer with [facility] requesting schedule ov dm-b/p appointment with pcp. [phone] pt documented in this encounter Plan of Treatment Not on file documented as of this encounter Visit Diagnoses Not on filedocumented in this encounter Additional Health Concerns Assessment Noted Time PHQ-9 Depression Total Score: 23 023 10:05 AM EDT documented as of this encounter Care Teams Screen Machine Operator Relationship Specialty Start Date End Date Zulema Wasserman MD [address] [place] [address] PCP - General Family Medicine 02/10/21 Ashley Orosco Psychiatrist 01/27/23 Alexis 04/25/23 documented as of this encounter
--- OUTSIDE RECORDS SUMMARY | 2024-10-03 11:09 | XMS_ITS | Encounter Summary ---
Author Organization [employer] Address [address] [facility] [address] [place] [address] Care Team Providers Care Hog Operator Name Role Phone Zulema Wasserman MD Primary Care Provider [phone] Reason for Visit * Reason Onset Date Comments Prior Authorization 04/02/2024 Encounter Details Date Type Department Care Team ([facility] st Contact Info) Description 04/02/2024 Telephone [facility] [address] [place] [address] Zulema Wasserman MD [address] [place] [address] Prior Authorization Social History Tobacco Use Types Packs/Day Years [...] encounter Miscellaneous Notes * Telephone Encounter - Josie Contreras - 05/31/2024 12:14 PM EST Tc from Debby with [facility] regarding PA being denied for Glucose Sensor (FreeStyle Jayda 2 Sensor) misc. Debby is inquiring if PCP will appeal the denial or if order should be cancelled. Contact Debby [phone] * Telephone Encounter - Danny Lacy - 04/02/2024 3:26 PM EST Tc from pt requesting PA for Continuous Glucose Sensor (FreeStyle Jayda 2 Sensor) misc. documented in this encounter Plan of Treatment Not on file documented as of this encounter Visit Diagnoses Not on filedocumented in this encounter Additional Health Concerns Assessment Noted Time PHQ-9 Depression Total Score: 23 023 10:05 AM EDT documented as of this encounter Care Teams Hog Operator Relationship Specialty Start Date End Date Zulema Wasserman MD [address] [place] [address] PCP - General Family Medicine 02/10/21 Ashley Orosco Psychiatrist 01/27/23 Alexis 04/25/23 documented as of this encounter
--- OUTSIDE RECORDS SUMMARY | 2024-10-03 11:09 | XMS_ITS | Encounter Summary ---
Author Organization [employer] Address [address] [facility] [address] [place] [address] Care Team Providers Care Prism Measurer Name Role Phone Zulema Wasserman MD Primary Care Provider [phone] Encounter Details Date Type Department Care Team (Late st Contact Info) Description 09/16/2024 Orders Only [facility] CHC MED & PEDS [address] [place], [place] [phone] ProviderEstuardo MD Social History Tobacco Use Types Packs/Day Years [...] Procedure Name Priority Date/Time Associated Diagnosis Comments ECG 12-LEAD Routine 09/12/2024 8:33 AM EDT documented in this encounter Results * ECG 12 lead (09/12/2024 8:33 AM EDT) us Historical Provider ECG ORDERABLES Final Res ult documented in this encounter Visit Diagnoses Not on filedocumented in this encounter Additional Health Concerns Assessment Noted Time PHQ-9 Depression Total Score: 23 023 10:05 AM EDT documented as of this encounter Care Teams Prism Measurer Relationship Specialty Start Date End Date Zulema Wasserman MD [address] [place] [id number] PCP - General Family Medicine 02/10/21 Ashley Orosco Psychiatrist 01/27/23 Alexis 04/25/23 documented as of this encounter
--- OUTSIDE RECORDS SUMMARY | 2024-10-03 11:09 | XMS_ITS | Encounter Summary ---
Author Organization [employer] Address [address] [facility] [address] [place] [address] Care Team Providers Care Funeral Service Apprentice Name Role Phone Zulema Wasserman MD Primary Care Provider [phone] Encounter Details Date Type Department Care Team (Late st Contact Info) Description 09/13/2024 Orders Only [facility] CHC MED & PEDS [address] [place], [place] [phone] Provider, MD Estuardo Social History Tobacco Use [...] Date/Time Associated Diagnosis Comments ECG 12-LEAD Routine 09/11/2024 10:03 AM EDT documented in this encounter Results * ECG 12 lead (09/11/2024 10:03 AM EDT) us Historical Provider ECG ORDERABLES Final Res ult documented in this encounter Visit Diagnoses Not on filedocumented in this encounter Additional Health Concerns Assessment Noted Time PHQ-9 Depression Total Score: 23 023 10:05 AM EDT documented as of this encounter Care Teams Funeral Service Apprentice Relationship Specialty Start Date End Date Zulema Wasserman MD [address] [place] [id number] PCP - General Family Medicine 02/10/21 Ashley Orosco Psychiatrist 01/27/23 Alexis 04/25/23 documented as of this encounter
--- OUTSIDE RECORDS SUMMARY | 2024-10-03 11:09 | XMS_ITS | Encounter Summary ---
Author Organization [employer] Address 75 [facility] 7t [place] [address] Care Team Providers Care Chief Radiation Therapist Name Role Phone Zulema Wasserman MD Primary Care Provider [phone] Reason for Visit * Reason Onset Date Comments Med Refill 08/24/2022 Encounter Details Date Type Department Care Team (Late st Contact Info) Description 08/24/2022 Telephone [facility] MED & PEDS [address] [place], [place] [phone] Zulema Wasserman MD [address] [place] [address] Med Refill Social History Tobacco Use Types Packs/Day Years Used Date Smoking Tobacco: Never Passive Smoke Exposure: Never Smokeless Tobacco: Never Alcohol Use Standard Drinks/Week Comments Never 0 (1 standard drink = 0.6 oz pur e alcohol) PHQ-2 Answer Date Recorded Patient Health Questionnaire-2 Score 6 05/19/2022 Comments Unknown Sex and Gender Information Value Date Recorded Sex Assigned at Female 03/14/2022 10:39 AM EDT Legal Sex Female 10:39 AM EDT Gender Identity Female 03/14/2022 10:39 AM EDT Sexual Orientation Choose not to disclose 2021 10:39 AM EDT documented as of this encounter Miscellaneous Notes * Telephone Encounter - Cristiana Nunes - 08/24/2022 10:38 AM EDT Tc from pt requesting med refill for medication meclizine (Antivert) 25 MG tablet. Please sent to [facility] at [place], [place] - [address] documented in this encounter Plan of Treatment Not on file documented as of this encounter Visit Diagnoses Not on filedocumented in this encounter Additional Health Concerns Assessment Noted Time PHQ-9 Depression Total Score: 25 023 9:18 AM EST documented as of this encounter Care Teams Chief Radiation Therapist Relationship Specialty Start Date End Date Zulema Wasserman MD [address] [place] [address] PCP - General Family Medicine 02/10/21 Ashley Orosco Psychiatrist 01/27/23 Alexis 04/25/23 documented as of this encounter
--- OUTSIDE RECORDS SUMMARY | 2024-10-03 11:09 | XMS_ITS | Encounter Summary ---
Author Organization [employer] Address 75 [facility] 7t [place] [address] Care Team Providers Care Raw Stock Machine Loader Name Role Phone Zulema Wasserman MD Primary Care Provider [phone] Encounter Details Date Type Department Care Team (Late st Contact Info) Description 05/27/[address] [facility] MEDICINE [address] [place] [address] Say Palencia MD [address] [place], [place] [phone] Type 2 diabetes mellitus with diabetic nephropathy, without long-term current use of insulin ([facility]) (Primary Dx) Social History Tobacco Use Types [...] not to disclose 2021 10:39 AM EDT COVID-19 Exposure Response Date Recorded In the last 10 days, have yo u been in contact with someone who was confirmed or suspected to have Coronavirus/COVID-19? No / Unsure 05/19/2022 8:46 AM EST documented as of this encounter Plan of Treatment Not on file documented as of this encounter Procedures Procedure Name Priority Date/Time Associated Diagnosis Comments CREATININE, RANDOM URINE Routine 02/27/2023 11:59 AM EDT Type 2 diabetes mellitus with diabetic nephropathy, without long-term current use of insulin (CMS/HCC) CREATININE, SERUM Routine 02/27/2023 11: 49 AM EDT Type 2 diabetes mellitus with diabetic nephropathy, without long-term current use of insulin (CMS/HCC) UREA NITROGEN (BUN) Routine 02/27/2023 1 1:49 AM EDT Type 2 diabetes mellitus with diabetic nephropathy, without long-term current use of insulin (CMS/HCC) CALCIUM Routine 02/27/2023 11:49 AM EDT Type 2 diabetes mellitus with diabetic nephropathy, without long-term current use of insulin (CMS/HCC) ELECTROLYTE PANEL Routine 02/27/2023 11: 49 AM EDT Type 2 diabetes mellitus with diabetic nephropathy, without long-term current use of insulin (CMS/HCC) COMPREHENSIVE METABOLIC PANEL, FASTING Routine 02/15/2023 10:54 AM EDT Type 2 diabetes mellitus with diabetic nephropathy, without long-term current use of insulin (CMS/HCC) COMPREHENSIVE METABOLIC PANEL, FASTING Routine 02/02/2023 1:11 PM EDT Type 2 diabetes mellitus with diabetic nephropathy, without long-term current use of insulin (CMS/HCC) HIV ANTIBODY/ANTIGEN ([place] [facility]) Routine 02/02/2023 1:11 PM EDT Type 2 diabetes mellitus with diabetic nephropathy, without long-term current use of insulin ([facility]/HCC) documented in this encounter Results * Creatinine, Random Urine (02/27/2023 11:59 AM EDT) Creatinine, Urine 118.26 mg/dL [facility] 02/27/2023 11:5 9 AM EDT 02/27/2023 2:00 PM EDT us Zulema Wasserman MD LAB URINE ORDERABLES Final Re sult Performing Organization Address [facility]/ZIP Co de Phone Number [facility] [address] [place] [address] [phone] * Calcium (02/27/2023 11:49 AM EDT) Calcium 9.4 8.4 - 10.2 mg/dL [facility] 02/27/2023 11:4 9 AM EDT 02/27/2023 2:02 PM EDT us Zulema Wasserman MD LAB BLOOD ORDERABLES Final Re sult Performing Organization Address [facility] Co de Phone Number [facility] [address] [place] [address] [phone] * (ABNORMAL) Creatinine, Serum (02/27/2023 11:49 AM EDT) Creatinine, Serum 1.75(H) 0.5 - 1.4 mg/dL [facility] Estimated Glomerular Filt Rate 30 [facility] Comment:NOTE: For -Am erican individuals, multiply the result by 1.210.Chronic Kidney Disease: Estimated GFR < 60 mL/min/1.08j0Htrpiv Kidney Disease: Estimated GFR < 15 mL/min/1.73m2 02/27/2023 11:4 9 AM EDT 02/27/2023 2:02 PM EDT us Zulema Wasserman MD LAB BLOOD ORDERABLES Final Re sult Performing Organization Address [facility] Co de Phone Number [facility] [address] [place] [phone] * (ABNORMAL) BUN (Blood Urea Nitrogen) (02/27/2023 11:49 AM EDT) Urea Nitrogen (BUN) 23(H) 9 - 16 mg/dL [facility] 02/27/2023 11:4 9 AM EDT 02/27/2023 2:02 PM EDT Zulema Wasserman MD LAB BLOOD ORDERABLES Final Re sult Performing Organization Address [facility] Co de Phone Number [facility] [address] [place] [phone] * (ABNORMAL) Electrolyte Panel (02/27/2023 11:49 AM EDT) Sodium 137 135 - 145 mmol/L [facility] Potassium 4.8 3.3 - 5.1 mmol/L [facility] Chloride 106 96 - 108 mmol/L [facility] Carbon Dioxide 21(L) 22 - 29 mmol/L [facility] Anion Gap 15 12 - 20 [facility] 02/27/2023 11:4 9 AM EDT 02/27/2023 2:02 PM EDT Zulema Wasserman MD LAB BLOOD ORDERABLES Final Re sult Performing Organization Address [facility] de Phone Number [facility] [address] [place] [phone] * (ABNORMAL) Comprehensive Metabolic Panel, Fasting (02/15/2023 10:54 AM EDT) Sodium 136 135 - 145 mmol/L [facility] Potassium 4.6 3.3 - 5.1 mmol/L [facility] Chloride 108 96 - 108 mmol/L [facility] Carbon Dioxide 18(L) 22 - 29 mmol/L [facility] Anion Gap 15 12 - 20 [facility] Urea Nitrogen (BUN) 28(H) 9 - 16 mg/dL [facility] Creatinine, Serum 2.16(H) 0.5 - 1.4 mg/dL [facility] Estimated Glomerular Filt Rate 23 [facility] Comment:NOTE: For -Am erican individuals, multiply the result by 1.210.Chronic Kidney Disease: Estimated GFR < 60 mL/min/1.41e5Aoodmc Kidney Disease: Estimated GFR < 15 mL/min/1.73m2 Glucose Fasting 245(H) 60 - 99 mg/dL [facility] Comment:A fasting glucose of 126 mg/dl or greater on more than oneoccasion is considered diagnostic of diabetes. Calcium 9.4 8.4 - 10.2 mg/dL [facility] Bilirubin, Total 0.4 0.0 - 1.0 mg/dL [facility] Aspartate Amino Transferase 25 5 - 31 U/L [facility] Alanine Aminotransferase 24 0 - 31 U/L [facility] Total Protein 7.7 6.5 - 8.0 g/dL [facility] Albumin Level 4.0 3.5 - 5.0 g/dL [facility] Alkaline Phosphatase 121(H) 39 - 117 U/L [facility] 02/15/2023 10:5 4 AM EDT 02/15/2023 2:10 PM EDT us Zulema Wasserman MD LAB BLOOD ORDERABLES Final Re sult [facility] [address] [place] [address] [phone] * HIV Ab/Ag ([facility]) (02/02/2023 1:11 PM EDT) HIV AB/AG Nonreactive Nonreactive [facility] Comment:HIV-1 p24 Ag and/or HIV-1/HIV-2 Ab not detected.A test result that is nonreactive does not exclude thepossibility of exposure to or infection with HIV-1 and/orHIV-2. Nonreactive results in this assay for individualswith prior exposure to HIV-1 and/or HIV-2 may be due toantigen and antibody levels that are below the limit ofdetection of this assay.The [employer] HIV Ag/Ab Combo assay result andsupplemental assay results should be interpreted inconjunction with the patient's clinical presentation,history and other laboratory results. If the results areinconsistent with clinical evidence, additional testing issuggested to confirm the result. 02/02/2023 1:11 PM EDT 02/02/2023 2:22 PM EDT us Zulema Wasserman MD LAB BLOOD ORDERABLES Final Re sult [facility] [address] [place] [address] [phone] * (ABNORMAL) Comprehensive Metabolic Panel, Fasting (02/02/2023 1:11 PM EDT) Sodium 139 135 - 145 mmol/L [facility] Potassium 4.8 3.3 - 5.1 mmol/L [facility] Chloride 108 96 - 108 mmol/L [facility] Carbon Dioxide 23 22 - 29 mmol/L [facility] Anion Gap 13 12 - 20 [facility] Urea Nitrogen (BUN) 28(H) 9 - 16 mg/dL [facility] Creatinine, Serum 1.83(H) 0.5 - 1.4 mg/dL [facility] Estimated Glomerular Filt Rate 28 [facility] Comment:NOTE: For -Am erican individuals, multiply the result by 1.210.Chronic Kidney Disease: Estimated GFR < 60 mL/min/1.26r4Gxqvaq Kidney Disease: Estimated GFR < 15 mL/min/1.73m2 Glucose Fasting 108(H) 60 - 99 mg/dL [facility] Comment:A fasting glucose fr om 100-125 mg/dl is considered impaired(pre-diabetes). Calcium 9.8 8.4 - 10.2 mg/dL [facility] Bilirubin, Total 0.3 0.0 - 1.0 mg/dL [facility] Aspartate Amino Transferase 21 5 - 31 U/L [facility] Alanine Aminotransferase 24 0 - 31 U/L [facility] Total Protein 8.2(H) 6.5 - 8.0 g/dL [facility] Albumin Level 4.3 3.5 - 5.0 g/dL [facility] Alkaline Phosphatase 143(H) 39 - 117 U/L [facility] 02/02/2023 1:11 PM EDT 02/02/2023 2:22 PM EDT us Zulema Wasserman MD LAB BLOOD ORDERABLES Final Re sult [facility] [address] [place] [phone] [phone] documented in this encounter Visit Diagnoses Diagnosis Type 2 diabetes mellitus with diabetic nephropathy, without long-term current use of insulin ([facility])- Primary documented in this encounter Additional Health Concerns Assessment Noted Time PHQ-9 Depression Total Score: 25 023 9:18 AM EST documented as of this encounter Care Teams Raw Stock Machine Loader Relationship Specialty Start Date End Date Zulema Wasserman MD [address] [place] [phone] PCP - General Family Medicine 02/10/21 Ashley Orosco Psychiatrist 01/27/23 Alexis 04/25/23 documented as of this encounter
--- OUTSIDE RECORDS SUMMARY | 2024-10-03 11:09 | XMS_ITS | Encounter Summary ---
Author Organization [employer] Address 75 [facility] 7t [place] [address] Care Team Providers Care Apartment Community Assistant Manager Name Role Phone Zulema Wasserman MD Primary Care Provider [phone] Encounter Details Date Type Department Care Team (Late st Contact Info) Description 03/26/2024 Orders Only [facility] CHC MED & PEDS [address] [place], [place] [phone] Provider, MD Estuardo Social History Tobacco Use [...] Procedure Name Priority Date/Time Associated Diagnosis Comments DIABETES EYE EXAM Routine 03/25/2024 12:23 PM EST documented in this encounter Results * Diabetes Eye Exam (03/25/2024 12:23 PM EST) us Historical Provider HEALTH MAINTENANCE Final Result documented in this encounter Visit Diagnoses Not on filedocumented in this encounter Additional Health Concerns Assessment Noted Time PHQ-9 Depression Total Score: 023 10:05 AM EDT documented as of this encounter Care Teams Apartment Community Assistant Manager Relationship Specialty Start Date End Date Zulema Wasserman MD [address] [place] [phone] PCP - General Family Medicine 02/10/21 Ashley Orosco Psychiatrist 01/27/23 Alexis 04/25/23 documented as of this encounter
--- OUTSIDE RECORDS SUMMARY | 2024-10-03 11:09 | XMS_ITS | Encounter Summary ---
Author Organization [employer] [facility] Address [address] [place] [address] [address], [place] [address] Care Team Providers Care Supervisor Rough End Name Role Phone Zulema Wasserman MD Primary Care Provider [phone] Reason for Referral * Consultation (Routine) - Pending Review Specialty Diagnoses / Procedures Referred By Jocelyn ybarra Referred To Contact Physical Therapy Diagnoses Chronic left hip pain Zulema Wasserman MD [address] [place] [address] Phone: tel: fax: Referral ID Status Reason Start Date Expiration Date Visits Requested Visits Authorized [id number] Pending Review Specialty Services Required 10/03/2024 10/03/2025 1 1 * Consultation (Routine) - Authorized Specialty Diagnoses / Procedures Referred By Jocelyn ybarra Referred To Contact Pharmacy Diagnoses Type 2 diabetes mellitus with diabetic nephropathy, unspecified whether terminal carman insulin use ([facility] Zulema Wassreman MD [address] [place] [address] Phone: tel: fax: Referral ID Status Reason Start Date Expiration Date Visits Requested Visits Authorized [id number] Authorized Continuity of Care 10/03/2024 10/03/2025 6 6 * Medications - Closed Specialty Diagnoses / Procedures Referred By Jocelyn ybarra Referred To Contact Diagnoses Type 2 diabetes mellitus with diabetic nephropathy, unspecified whether group home insulin use ([facility]) Zulema Wasserman MD [address] [place] [address] Phone: tel: fax: Referral ID Status Reason Start Date Expiration Date Visits Re quested Visits Authorized [id number] Closed 1 1 Encounter Details Date Type Department Care Team (Late st Contact Info) Description 10/03/2024 10:00 AM EDT Office Visit [facility] MED & PEDS [address] [place] [address] Zulema Wasserman MD [address] [place] [address] Type 2 diabetes mellitus with diabetic nephropathy, unspecified whether terminal carman insulin use ([facility]) (Primary Dx); Chronic kidney disease, stage 4 (severe) ([facility]); Class 2 obesity; Dietary counseling; Exercise counseling; Class 1 obesity with serious comorbidity and body mass index (BMI) of 33.0 to 33.9 in adult, unspecified obesity type; Chronic left hip pain Social History Tobacco Use Types Packs/Day Years Used Date Smoking Tobacco: Never Passive Smoke Exposure: Never Smokeless Tobacco: Never Alcohol Use Standard Drinks/Week Comments Never 0 (1 standard drink = 0.6 oz pur e alcohol) Depression Answer Date Recorded Patient Health Questionnaire-9 Score 23 02/01/2023 Housing Stability Answer Date Recorded What is your housing situation today? I have stephie de la rosa 09/24/[address] you li ve. Do you have problems with any of the following? None of the above 09/24/2024 Food Insecurity Answer Date Recorded Within the past 12 months, y ou worried that your food would run out before you got money to buy more: Never True 09/24/2024 Within the past 12 months,th e food you bought just didn't last and you didn't have enough money to get more: Never True Transportation Answer Date Recorded In the past 12 months, has l ack of transportation kept you from medical appts, meetings, work or from getting things needed for daily living? No 09/24/2024 Utilities Answer Date Recorded In the past 12 months, has t he electric, gas, oil or water company threatened to shut off services in your home? No 09/24/2024 Depression Answer Date Recorded Patient Health Questionnaire-2 Score 6 02/01/2023 Internet Access Answer Date Recorded Internet Access Q1 Yes 09/24/2024 Internet Access Q2 Not on file 09/24/2024 Comments Unknown Sex and Gender Information Value Date Recorded Sex Assigned at Female 03/14/2022 10:39 AM EDT Legal Sex Female 10:39 AM EDT Gender Identity Female 03/14/2022 10:39 AM EDT Sexual Orientation Choose not to disclose 2021 10:39 AM EDT documented as of this encounter Last Filed Vital Signs Vital Sign Reading Time Taken Comments Blood Pressure 124/67 10/03/2024 9:53 AM EDT Pulse 70 10/03/2024 9:53 AM EDT Temperature 36.4 ??C (97.5 ??F) 10/03/2024 9:53 AM ED T Respiratory Rate 20 10/03/2024 9:53 AM EDT Oxygen Saturation 97% 10/03/2024 9:53 AM EDT Inhaled Oxygen Concentration - - Weight 85.3 kg (188 lb) 10/03/2024 9:53 AM EDT Height 160 cm (5' 3 ) 10/03/2024 9:53 AM EDT Body Mass Index 33.3 10/03/2024 9:53 AM EDT documented in this encounter Plan of Treatment Scheduled Orders Name Type Priority Associated Diagnoses Orde r Schedule Lipid Panel, Standard Lab Routine Type 2 diabetes mellitus with diabetic nephropathy, unspecified whether group home insulin use (CMS/HCC) Expected: 10/03/2024 (Approximate), Expires: 10/03/2025 Comprehensive Metabolic Panel Lab Routine Type 2 diabetes mellitus with diabetic nephropathy, unspecified whether group home insulin use (CMS/HCC) Expected: 10/03/2024 (Approximate), Expires: 10/03/2025 TSH W/Reflex to FT4 Lab Routine Class 2 obesity Expected: 10/03/2024 (Approximate), Expires: 10/03/2025 Scheduled Referrals Name Type Priority Associated Diagnoses Orde r Schedule Referral to Pharmacy MTM Outpatient Referral Routine Type 2 diabetes mellitus with diabetic nephropathy, unspecified whether terminal carman insulin use (CMS/HCC) Ordered: 10/03/2024 Referral to Physical Therapy Outpatient Referral Routine Chronic left hip pain Expected: 10/03/2024 (Approximate), Expires: 10/03/2025 documented as of this encounter Procedures Procedure Name Priority Date/Time Associated Diagnosis Comments POCT GLYCATED HEMOGLOBIN, TOTAL Routine 10/03/2024 10:09 AM EDT Type 2 diabetes mellitus with diabetic nephropathy, unspecified whether terminal carman insulin use ([facility]) POCT GLUCOSE Routine 10/03/2024 10:08 AM EDT Type 2 diabetes mellitus with diabetic nephropathy, unspecified whether terminal carman insulin use ([facility]) documented in this encounter Results * (ABNORMAL) POCT HGB A1C (10/03/2024 10:09 AM EDT) Hemoglobin A1C 7.9(A) 4.0 - 6.0 % QC Media Lot # [id number] Lot# Expiration Date [id number] Blood 10/03/2024 10:0 9 AM EDT Zulema Wasserman MD POINT OF CARE TEST ENTER/EDIT ORDERABLES Final Result * POCT Glucose (10/03/2024 10:08 AM EDT) Glucose Blood, POC 160 60 - 200 mg/dL [employer] Media Lot # [id number] Lot# Expiration Date [id number] Blood Capillary blood specimen / Unknown 10/03/2024 10:08 AM EDT Zulema Wasserman MD POINT OF CARE TEST ENTER/EDIT ORDERABLES Final Result documented in this encounter Visit Diagnoses Diagnosis Type 2 diabetes mellitus with diabetic nephropathy, unspecified whether group home insulin use ([facility])- Primary Chronic kidney disease, stage 4 (severe) ([facility]) Class 2 obesity Dietary counseling Dietary surveillance and counseling Exercise counseling Class 1 obesity with serious comorbidity and body mass index (BMI) of 33.0 to 33.9 in adult, unspecified obesity type Chronic left hip pain documented in this encounter Additional Health Concerns Assessment Noted Time PHQ-9 Depression Total Score: 23 023 10:05 AM EDT documented as of this encounter Care Teams Supervisor Rough End Relationship Specialty Start Date End Date Zulema Wasserman MD [address] [place] [address] PCP - General Family Medicine 02/10/21 Ashley Orosco Psychiatrist 01/27/23 Alexis 04/25/23 documented as of this encounter
--- OUTSIDE RECORDS SUMMARY | 2024-10-03 11:09 | XMS_ITS | Encounter Summary ---
Author Organization [employer] Address [address] [facility] 7t [place] [address] Care Team Providers Care Beef Cattle Specialist Name Role Phone Zulema Wasserman MD Primary Care Provider [phone] Reason for Visit * Reason Comments Med Refill Encounter Details Date Type Department Care Team ([facility] Contact Info) Description 09/27/2024 Refill [facility] MED & PEDS [address] [place], [place] [phone] Nydia Lopes MD [address] [place] [address] Type 2 diabetes mellitus with diabetic nephropathy, unspecified whether prison insulin use ([facility]) Social History Tobacco Use Types Packs/Day Years [...] as of this encounter Visit Diagnoses Diagnosis Type 2 diabetes mellitus with diabetic nephropathy, unspecified whether termite control service representative insulin use ([facility]) documented in this encounter Additional Health Concerns Assessment Noted Time PHQ-9 Depression Total Score: 23 023 10:05 AM EDT documented as of this encounter Care Teams Beef Cattle Specialist Relationship Specialty Start Date End Date Zulema Wasserman MD [address] [place] [address] PCP - General Family Medicine 02/10/21 Ashley Orosco Psychiatrist 01/27/23 Alexis 04/25/23 documented as of this encounter
--- OUTSIDE RECORDS SUMMARY | 2024-10-03 11:09 | XMS_ITS | Encounter Summary ---
Author Organization [employer] Address [address] [facility] 7t [place] [address] Care Team Providers Care Cork Mixer Name Role Phone Zulema Wasserman MD Primary Care Provider [phone] Encounter Details Date Type Department Care Team (Latest Contact Info) Description 10/03/2024 Travel Social History Tobacco Use Types Packs/Day Years Used Date Smoking Tobacco: Never Passive Smoke Exposure: Never Smokeless Tobacco: Never Alcohol Use Standard Drinks/Week Comments Never 0 (1 standard drink = 0.6 oz pur e alcohol) Depression Answer Date Recorded Patient Health Questionnaire-9 Score 23 02/01/2023 Housing Stability Answer Date Recorded What is your housing situation today? I have stephiejustina de la rosa 09/24/2024 Think about the [...] documented as of this encounter Care Teams Cork Mixer Relationship Specialty Start Date End Date Zulema Wasserman MD [address] [place] [phone] PCP - General Family Medicine 02/10/21 Ashley Orosco Psychiatrist 01/27/23 Alexis 04/25/23 documented as of this encounter
--- OUTSIDE RECORDS SUMMARY | 2024-10-03 11:09 | XMS_ITS | Encounter Summary ---
Author Organization [employer] Address [address] [facility] [address] [place] [address] Care Team Providers Care Supervisor Color Paste Mixing Name Role Phone Zulema Wasserman MD Primary Care Provider [phone] Reason for Visit * Reason Onset Date Comments Prior Authorization 03/12/2024 Encounter Details Date Type Department Care Team ([facility] st Contact Info) Description 03/12/2024 Telephone [facility] [address] [place] [address] Zulema Wasserman MD [address] [place] [address] Prior Authorization Social History Tobacco Use Types [...] encounter Miscellaneous Notes * Telephone Encounter - Vasqueztaj Cruz - 03/12/2024 3:56 PM EDT Tc from Sergey with [facility] requesting call back regarding ANDERSON Montelongo needing a PA. Please contact Sergey at [phone]. documented in this encounter Plan of Treatment Not on file documented as of this encounter Visit Diagnoses Not on filedocumented in this encounter Additional Health Concerns Assessment Noted Time PHQ-9 Depression Total Score: 23 023 10:05 AM EDT documented as of this encounter Care Teams Supervisor Color Paste Mixing Relationship Specialty Start Date End Date Zulema Wasserman MD [address] [place] [address] PCP - General Family Medicine 02/10/21 Ashley Orosco Psychiatrist 01/27/23 Alexis 04/25/23 documented as of this encounter
--- OUTSIDE RECORDS SUMMARY | 2024-10-03 11:09 | XMS_ITS | Encounter Summary ---
Author Organization [employer] Address [address] [facility] [address] [place] [address] Care Team Providers Care Cloud Services Architect Name Role Phone Zulema Wasserman MD Primary Care Provider [phone] Encounter Details Date Type Department Care Team (Late st Contact Info) Description 07/05/2022 Telephone [facility] [address] [place] [address] Zulema Wasserman MD [address] [place], [place] [id number] Social History Tobacco Use Types Packs/Day Years [...] documented as of this encounter Care Teams Cloud Services Architect Relationship Specialty Start Date End Date Zulema Wasserman MD [address] [place] [address] PCP - General Family Medicine 02/10/21 Ashley Orosco Psychiatrist 01/27/23 Alexis 04/25/23 documented as of this encounter
--- OUTSIDE RECORDS SUMMARY | 2024-10-03 11:09 | XMS_ITS | Clinical Summary ---
Author Organization [employer] Address [address] [place] [address] Care Team Providers Care Blower And Compressor Assembler Name Role Phone Zulema Wasserman MD Primary Care Provider [phone] Allergies No known active allergies Medications * This document contains information received from the source organization and may not represent a complete record from that organization. Blood Pressure Monitoring (Omron 3 Series BP Monitor) device USE ON [facility] ONCE OR TWICE DAILY Active Lubricant Eye Drops 0.5 % ophthalmic solution INSTILL 1 DROP IN BOTH EYES UP TO FOUR TIMES DAILY Active clonazePAM (KlonoPIN) 1 MG tablet TAKE 1 TABLET BY MOUTH TWICE DAILY NEEDED FOR SEVERE ANXIETY Active doxepin (SINEquan) 100 MG capsule Take 100 mg by mouth at bedtime. Active latanoprost (Xalatan) 0.005 % ophthalmic solution INSTILL 1 DROP IN BOTH EYES EVERY NIGHT AT BEDTIME Active zolpidem (Ambien) 10 MG tablet Take 10 mg by mouth if needed at bedtime. Active Blood Glucose Monitoring Suppl (ONE TOUCH ULTRA 2) w/Device kitIndications: Type 2 diabetes mellitus with diabetic nephropathy, without long-term current use of insulin ([facility]) 1 Units 3 times daily. 1 kit 023 Active FLUoxetine (PROzac) 40 MG capsule TAKE 1 CAPSULE BY MOUTH EVERY MORNING 90 capsule 1 023 Active FLUoxetine (PROzac) 20 MG capsule 024 Active [employer]Touch Ultra test stripIndication s:Type 2 diabetes mellitus with diabetic nephropathy, without long-term current use of insulin (CMS/HCC) TEST BLOOD SUGAR TWICE DAILY 100 each 11 024 Active Continuous Glucose Property Preservation Specialist (FreeStyle Jayda 2 [place]) device Scan sensor every 8 hours 1 each 024 Active Continuous Glucose Sensor (FreeStyle Jayda 2 Sensor) [facility] Apply 1 sensor every 14 days 2 each 11 024 Active meclizine (Antivert) 25 MG tablet TAKE 1 TABLET BY MOUTH IN THE MORNING, AT NOON, AND AT BEDTIME NEEDED FOR DIZZINESS 90 tablet 024 Active cholecalciferol VITAMIN D (Vitamin D-3) 50 MCG (1999) capsule TAKE 1 CAPSULE BY MOUTH EVERY DAY 90 capsule 3 Active sodium bicarbonate 650 MG tablet Take 650 mg by mouth 3 times daily. Active timolol (Timoptic) 0.5 % ophthalmic solution Administer 1 drop into both eyes 2 times daily. 15 mL 3 024 2024 Active Easy Touch Pen Broadalbin 32G X 6 MM [facility] Use as instructed 100 each 3 024 Active Eye Itch Relief 0.035 % solution Active lactulose (Chronulac) 10 GM/15ML solutionIndicat ions:Constipati on, unspecified constipation type TAKE 15 ML (10G) BY MOUTH IF NEEDED IN THE MORNING AND AT BEDTIME (CONSTIPATION). 900 mL 024 Active amLODIPine (Norvasc) 5 MG tablet TAKE 1 TABLET BY MOUTH EVERY DAY 90 tablet 1 024 Active Lancets (OneTouch Delica Plus [id number]) [facility] TEST BLOOD SUGAR TWICE DAILY 100 each 9 025 Active pantoprazole (ProtoNix) 40 MG EC tablet TAKE 1 TABLET (40 MG) BY MOUTH BEFORE BREAKFAST. DO NOT CRUSH, CHEW, OR SPLIT. 90 tablet 025 Active rosuvastatin (Crestor) 40 MG tablet TAKE 1 TABLET (40 MG) BY MOUTH IN THE MORNING. 90 tablet 025 Active lidocaine (Lidoderm) 5 % patchIndication s:Pain APPLY 1 PATCH TO PAINFUL AREA. LEAVE ON FOR 12 HOURS, THEN OFF FOR 12 HOURS 30 patch 3 025 Active ferrous gluconate (Fergon) 324 (38 Fe) MG tabletIndicatio ns:Iron deficiency anemia, unspecified iron deficiency anemia type TAKE 1 TABLET BY MOUTH EVERY DAY WITH ORANGE JUICE 90 tablet Active spironolactone (Aldactone) 25 MG tablet Take 25 mg by mouth Once per day. 025 2024 Active doxepin (SINEquan) 25 MG capsule Active Tirzepatide 7.5 MG/0.5ML solution auto-injectorIn dications:Type 2 diabetes mellitus with diabetic nephropathy, unspecified whether computer terminal operator insulin use ([facility]) Inject 7.5 mg under the skin 1 (one) time per week. 2 mL 5 Active senna-docusate sodium (Senokot-S) 8.6-50 MG tablet Take 2 tablets by mouth Once per day. 60 tablet 2025 Active Alcohol Swabs pads 1 Swab 4 times daily. 200 each Active insulin glargine (Lantus SoloStar) 100 UNIT/ML pen Inject 28 Units under the skin at bedtime. 15 mL 1 Active furosemide (Lasix) 20 MG tablet TAKE 1/2 (HALF) TABLET BY MOUTH TWICE DAILY 60 tablet 025 2024 Discontinued Mounjaro 5 MG/0.5ML solution auto-injectorIn dications:Type 2 diabetes mellitus with diabetic nephropathy, unspecified whether computer terminal operator insulin use ([facility]) INJECT 5MG SUBCUTANEOUSLY ONE TIME WEEKLY 2 mL 2 025 2024 Discontinued Lantus SoloStar 100 UNIT/ML pen INJECT 25 UNITS UNDER THE SKIN AT BEDTIME. 15 mL 1 025 2024 Discontinued furosemide (Lasix) 20 MG tablet TAKE 1/2 (HALF) TABLET BY MOUTH TWICE DAILY 60 tablet 025 2024 Discontinued(T herapy completed) Mounjaro 5 MG/0.5ML solution auto-injectorIn dications:Type 2 diabetes mellitus with diabetic nephropathy, unspecified whether prison insulin use ([facility]) INJECT 5MG SUBCUTANEOUSLY ONE TIME WEEKLY 2 mL 1 025 2024 Discontinued(T herapy completed) insulin glargine (Lantus SoloStar) 100 UNIT/ML pen Inject 30 Units under the skin at bedtime. 15 mL 1 2 025 2024 Discontinued Active Problems Problem Noted Date Diagnosed Date Hypokalemia 09/11/2024 Abnormality of gait 03/04/2024 Assessment & Plan (03/04/2024 9:50 AM EDT): Advised to increase movement throughout the day to alleviate Sx. Discussed stretching, walking with walker, and ROM exercises. Referral to PT sessions for continued treatment of leg pain. Leg edema 02/16/2024 Type 2 diabetes mellitus wit h hyperglycemia, without long-term current use of insulin 01/29/2024 Assessment & Plan (01/29/2024 11:49 AM EDT): Reports she was hospitalized from 01/23 to 01/25 due to hyperglycemia and inability to bear weight in [facility], she was started on Lantus, reports she is taking her monjauro but then reports she needs a PA so is unclear if she is taking GLP-1/GIP or not. Reports fastings within target. At this point unclear if her insurance will approve a CGM especially given her now use of insulin and her rapidly worsening medical condition. Inability to bear weight 01/29/2024 Assessment & Plan (01/29/2024 11:52 AM EDT): Reports she went into the hospital walking and now she can't walk, she was only admitted for 3 days, unclear how she got deconditioned and this appt was switch to a televisit, I was unable to evaluate her and no records were obtained from her hospitalization. Reports she needs a manual wheel chair and shower chair. She had been seen last month, and we were concern about worsening polyarthalgia, she had reports she had been diagnosed years ago with fibromyalgia, yet I don't have records of this, reports it was done in the [facility]. At this point need records, inperson eval, and also PT eval. Will need to contact [facility] worker to assess how best they can help this patient to get PT at home, also needs shower chair and wheelchair as she claims she can't bear weight. Polyarthralgia 01/12/2024 Assessment & Plan (01/16/2024 7:09 PM EDT): Reports hx of fibromyalgia, unclear when/how diagnosis was made, no records of previous dx of fibromyalgia, patients mental state likely contributing to worsening of her symptoms. Will send autoimmune testing and will need to reviewed criteria for diagnosis of fibromyalgia and if she indeed has this dx. Refusal of blood transfusion s as patient is Anab[employer] 10/16/2023 Diabetic neuropathy 10/04/2023 Depression 10/04/2023 Obesity, morbid 08/14/2023 Assessment & Plan (08/14/2023 6:32 PM EDT): Discussed calorie deficit, recommended reduction of 20-30% of maintenance calories; manager disaster recovery referral offered. Recommended to decrease soda and sugary beverage consumption. Recommended at least 20 g per meal of protein to assist with satiety. Recommended at least 150 min/week of moderate intensity exercise. Chronic kidney disease, stage 4 (severe) 023 04/13/2023 Assessment & Plan (10/16/2023 10:13 AM EDT): F/u with Optical Technician. Discussed current medications. Begin Norvasc discontinue Lisinopril. Relevant Medications Amlodipine (Norvasc) 5 MG tablet ELLIS (acute kidney injury) 02/27/2023 Assessment & Plan (02/27/2023 11:36 AM EDT): Will start w/up and referral STAT to nephrology. Dizziness 02/02/2023 Assessment & Plan (02/15/2023 11:39 AM EDT): -Patient still present concerns of dizziness. -Advised patient to take have of prescribed medication to subside episodes of dizziness. Assessment & Plan (02/02/2023 1:43 PM EDT): Offer PT for vertigo, pt declined, cont meclizine Insomnia 02/02/2023 Assessment & Plan (02/15/2023 3:01 PM EDT): Reports seroquel is helpful but feels that this is increasing her dizziness, recommended to 1/2 dose and f/up with psychiatrist Assessment & Plan (02/02/2023 1:44 PM EDT): Improvement with seroquel, pending appt with psych and therapy Gastroesophageal reflux disease without esophagi tis 02/02/2023 Assessment & Plan (02/02/2023 1:44 PM EDT): Will send trial of PPI, f/up in 8 weeks Constipation 02/02/2023 Assessment & Plan (02/15/2023 3:01 PM EDT): Patient didn't try senna as plan, she went straight to using lactulose which she has found to be helpful for her constipation. Discontinue senna. Assessment & Plan (02/02/2023 1:44 PM EDT): Recommended lifestyle changes and also sent senna and lactulose Severe episode of recurrent major depressive disorder, without psychotic features 01/27/2023 Assessment & Plan (02/01/2023 2:29 PM EDT): Patient with symptoms of anhedonia, hopelessness, sleep [...] week ago and being expelled from her latter-day due to marital status. Patient will benefit from continuing working with her therapist and psychiatrist for medication management. Provided contact information for [facility] program if needed for crisis episodes. Recommended follow-up BE with clinician and adding mindfulness techniques into daily routine. At this time Carmita Card meets criteria for Visit Diagnoses: Problem List Items Addressed This Visit Other Severe episode of recurrent major depressive disorder, without psychotic features ([facility]/HCC) Bereavement without complication Patient ready to address current needs Yes Strengths include motivated to change PLAN: 1. Follow up with [facility]: Recommended for follow-up: Follow-up scheduled to assess symptoms. 2. Patient goal is to feel less depressed 3. Behavioral Recommendations a. Follow-up BE with clinician in a week b. Continue medication to treat depression c. Contact [facility] program if needed for crisis episoded d. Incorporate self-care and mindfulness techniques into daily routine. Assessment & Plan (01/27/2023 11:57 AM EDT): Will give anti-psychotic medication. Follow up in 1 week. Bereavement without complication 01/27/2023 Class 2 obesity 05/19/2022 Assessment & Plan (02/27/2023 11:29 AM EDT): Discussed calorie deficit, recommended reduction of 20-30% of maintenance calories; manager disaster recovery referral offered. Recommended to decrease soda and sugary beverage consumption. Recommended at least 20 g per meal of protein to assist with satiety. Recommended at least 150 min/week of moderate intensity exercise. Urinary incontinence 05/19/2022 Assessment & Plan (06/12/2023 11:47 AM EST): Reports needs pads that are bigger 10 x 36, she needs 5 packs of 10, needs 50 pads per month, then needs pads BID. Using during the night and during the day in her seat. Using pads. Declines use of briefs. Assessment & Plan (02/15/2023 3:03 PM EDT): Reports she never re-programed her visit with urology, encouraged her to do so. Reports she wants her incontinence pads, underpads and wipes to be sent to [facility] instead of [facility]. Will send message to DME specialist. - will send trial of tolterodine Varicose veins 05/19/2022 Paronychia of finger of left hand 05/19/2022 Assessment & Plan (05/19/2022 1:15 PM EST): Mild, recommended warm soaks and will rx topical abx. Chronic left hip pain 05/19/2022 Assessment & Plan (08/14/2023 6:35 PM EDT): Referred to Ortho. Continue using patches for pain management. Assessment & Plan (05/19/2022 1:15 PM EST): Ddx ITB dysfunction, recommended PT and foam rolling, declined. Will end to ortho Type 2 diabetes mellitus with diabetic nephropat hy 04/25/2022 Assessment & Plan (03/04/2024 2:18 PM EDT): Increase dose of monjauro. Continue Lantus 25 units. Discussed with Pt to adjust insulin based on glucose readings while fasting to avoid hypoglycemic episodes at night. Adjust Lasix to 10 mg BID to reduce urinary frequency at night. Discussed medication refills as needed. Relevant Medications Furosemide (Lasix) 20 mg tablet Lantus Solostar 100 unit / ML pen Assessment & Plan (01/26/2024 1:07 PM EDT): A1c: 12.6 Glucose: 500 Uncontrolled. Pt has not been adherent with current plan. Advised the pt of the importance of monitoring her blood sugar and practicing healthy life-style choices. On max dose of trulicity w/o control. At this moment will start GLP1/GIP. My concern of adding insulin is that patient does not monitor her glucose, also daily insulin injections will not be ideal given patients poor compliance. Relevant orders: Tirzepatide 2.5 MG/0.5ML solution pen-injector This patient has diabetes and uses GLP-1 and medications as part of her diabetes treatment plan. For her safety, I have advised this patient to check their blood glucose level at least four times daily, including before meals, before bed, periodically after meals, if she believes she might be experiencing hypoglycemia, or if she is ill. I have therefore recommended continuous glucose monitoring as part of her comprehensive diabetes treatment plan, in order to help her lower her HbA1c to target and/or maintain her HbA1c at target, to alert her to and to detect hypoglycemia, and/or to reduce hypoglycemia. Being able to use a continuous glucose monitoring system will therefore help increase their short term and long-term safety. This is consistent with the [place] [employer]? s Standards of Medical Care in Diabetes--2023 (https://diabetesjournals.org/care/article/47/Supplement_1/S126/985781/7-Diabete s-Bertrand zwzpgql-Irbouhkrw-op-Care-in) Assessment & Plan (10/16/2023 10:14 AM EDT): Continue with Trulicity. Assessment & Plan (08/14/2023 6:30 PM EDT): Uncontrolled: A1C levels (8.5) are above normal limit. Therefore, will be increasing Trulicity to 4.5 mg. Advised to keep monitoring glucose levels at home, and bring numbers upon next office visit. Labs: HGB A1C, Glucose Assessment & Plan (06/12/2023 11:55 AM EST): Uncontrolled: A1C levels are above normal limit. Therefore, will be increasing Trulicity. Advised to keep monitoring glucose levels at home, and bring numbers upon next office visit. Assessment & Plan (04/13/2023 1:26 PM EST): Uncontrolled: Patient will have an increase of Trulicity. Recommended to keep monitoring glucose levels at home and bring numbers upon next office visit. Iron deficiency anemia 11/04/2021 Hypertension 02/04/2021 Assessment & Plan (01/16/2024 7:07 PM EDT): Controlled. Target < 130/80 mmHg Lab Results Component Value Date CREATININE 1.75 (H) 02/27/2023 Following with nephrology. Will send monitoring labs. Assessment & Plan (04/13/2023 1:28 PM EST): Controlled: will not make any changes at this time. Recommended to keep monitoring at home and bring readings upon next office visit. 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 01/12/2024 Encounters Date Type Department Care Team Description 10/03/2024 10:00 AM EDT Office Visit [facility] [address] [place] [address] Zulema Wasserman MD Type 2 diabetes mellitus with diabetic nephropathy, unspecified whether computer terminal operator insulin use ([facility]) (Primary Dx); Chronic kidney disease, stage 4 (severe) (CMS/[facility]); Class 2 obesity; Dietary counseling; Exercise counseling; Class 1 obesity with serious comorbidity and body mass index (BMI) of 33.0 to 33.9 in adult, unspecified obesity type; Chronic left hip pain 10/03/2024 Travel 09/27/2024 Refill [facility] [address] [place] [address] Nydia Lopes MD Type 2 diabetes mellitus with diabetic nephropathy, unspecified whether prison insulin use ([facility]) 09/24/2024 Patient Outreach [address] [address] Zulema Wasserman MD Pre-visit Planning (SDOH screening negative and Tobacco screening negative) 09/16/2024 Orders Only [facility] [address] [place] [address] Estuardo Leblanc MD 09/13/2024 Orders Only [facility] [address] [place] [address] Estuardo Leblanc MD 09/12/2024 Orders Only [facility] [address] [place] [address] Estuardo Leblanc MD 09/05/[address] [address] Zulema Wasserman MD Durable Medical Equipment 09/04/[address] [address] Zulema Wasserman MD Appointment Request 09/02/2024 Refill [facility] [address] [place] [address] Zulema Wasserman MD 08/26/2024 Refill [facility] [address] [place] [address] Zulema Wasserman MD Iron deficiency anemia, unspecified iron deficiency anemia type 08/13/2024 Telephone [facility] [address] [place] [address] Zulema Wasserman MD FYI 07/23/2024 Refill [facility] [address], [place] [id number] Zulema Wasserman MD Pain 07/22/2024 Refill [facility] [address], [place] [phone] Zulema Wasserman MD 07/08/2024 Refill [facility] [address], [place] [id number] Zulema Wasserman MD Type 2 diabetes mellitus with diabetic nephropathy, unspecified whether computer terminal operator insulin use ([facility]) from Last 3 Months Immunizations Immunization Administration Dates Next Due Hep A, Adult 10/27/2016 Hep B, adult 10/27/2016,05/26/2016,04/28/2016 INFLUENZA INJECTABLE QUADRIV ALANT CCIIV4 MDCK Multi-dose vial 02/01/2022 Influenza Injectable Quadriv alant Preservative Free IIV4 MDCK 02/13/2020,04/21/2019 Influenza injectable quadriv alent preservative free 01/27/2023,02/02/2018 Influenza, IIV3, injectable 02/05/2024,0 02/10/2021,03/22/2017,04/22 Pete SARS-CoV-2 Vaccination 08/07/2020 Pfizer Covid-19 Vaccine 12+ 06/12/2023 Pneumococcal Conjugate PCV 20 01/27/2023 Pneumococcal Polysaccharide PPSV23 03/22/2017 RSV Bivalent 06/12/2023 Td (adult), unspecified 12/21/2016 Tdap 11/21/2018 Zoster, Recombinant 05/03/2018,02/02/2018 Social History Tobacco Use Types Packs/Day Years Used Date Smoking Tobacco: Never Passive Smoke Exposure: Never Smokeless Tobacco: Never Tobacco Cessation:Counseling Given: Not Answered Alcohol Use Standard Drinks/Week Comments Never 0 [...] not to disclose 2021 10:39 AM EDT Last Filed Vital Signs Vital Sign Reading [...] Mass Index 33.3 10/03/2024 9:53 AM EDT Plan of Treatment Health Maintenance Due Date Last Done Comments CT Colonography 1961 FIT DNA/Cologuard 1961 FIT 1961 FOBT 1961 Sigmoidoscopy 1961 Disability Screening 1961 Depression Screening 02/02/2024 02/01/2023, 02/02/20 Lipid Panel 02/03/2024 02/02/2023, 03/15, 11/12/2021 Diabetes: Foot Exam 08/13/2024 08/14/2023, 08/14/2023, 08/14/2023, Additional history exists Pap Smear 11/12/2024 11/12/2021 Diabetes: Hemoglobin A1C 01/03/2025 025, 03/04/2024, 01/12/2024, Additional history exists Mammogram 08/08/2025 08/09/2023 Alcohol/Substance Use Screening 10/03/2025 10/03/2024 SDOH Screening 10/03/2025 10/03/2024 Tobacco Screening 10/03/2025 10/03/2024 Eye Exam 03/25/2026 03/25/2024 Cervical Cancer Screening 11/12/2026 HPV/Cotest 11/12/2026 11/12/2021 DTaP/Tdap/Td Vaccines (2 - Td or Tdap) 11/21/2028 11/21/2018, 12/21/2016 Colonoscopy 05/09/2029 05/09/2024 Colorectal Cancer Screening 05/09/2029 Hepatitis A Vaccines Aged Out 10/27/2016 No long er eligible based on patient's age to complete this topic Hepatitis B Vaccines Completed 10/27/2016, 05/26/2016, 04/28/2016 Zoster Vaccines Completed 05/03/2018, 02/02/2018 Pneumococcal Vaccine: 50+ Years Completed 01/27/2023, 03/22/2017 HIV Screening Completed 02/02/2023 RSV Patients and Patients Aged 60 years or older Completed 06/12/2023 Hepatitis C Screening Completed 01/19/2024, 023 Influenza Vaccine Completed 02/05/2024, , 02/01/2022, Additional [...] patient's age to complete this topic Meningococcal Vaccine Aged Out No channing latha eligible based on patient's age to complete this topic RSV under 20 months Aged Out No longe r eligible based on patient's age to complete this topic Rotavirus Vaccines Aged Out No longer eligible based on patient's age to complete this topic Procedures Procedure Name Priority Date/Time Associated Diagnosis Comments POCT GLYCATED HEMOGLOBIN, TOTAL Routine 10/03/2024 10:09 AM EDT Type 2 diabetes mellitus with diabetic nephropathy, unspecified whether computer terminal operator insulin use ([facility]) POCT GLUCOSE Routine 10/03/2024 10:08 AM EDT Type 2 diabetes mellitus with diabetic nephropathy, unspecified whether computer terminal operator insulin use (CMS/[facility]) ECG 12-LEAD Routine 09/12/2024 8:[address] ABDOMEN PELVIS WO CONTRAST Routine 09/11/2024 12:28 PM EDT ECG 12-LEAD Routine 09/11/2024 10:03 AM EDT HM COLONOSCOPY Routine 05/09/2024 9:15 AM EST HM DIABETES EYE EXAM Routine 03/25/2024 12:23 PM EST HEPATITIS C AB W/REFL TO HCV RNA, QN, PCR Routine 01/19/2024 8:33 AM EDT Polyarthralgia HP LINK DIABETIC FOOT EXAM Routine 08/14/2023 HM MAMMOGRAPHY Routine 08/09/2023 HIV ANTIBODY/ANTIGEN ([place] DPH) Routine 02/02/2023 1:11 PM EDT Type 2 diabetes mellitus with diabetic nephropathy, without long-term current use of insulin ([facility]/HCC) LIPID PANEL, STANDARD Routine 02/02/2023 1:11 PM EDT Type 2 diabetes mellitus with diabetic nephropathy, without long-term current use of insulin (CMS/HCC) THINPREP IMAGING PAP AND HPV MRNA E6/E7 WITH REFLEX TO HPV 16,18/45 Routine 11/12/2021 11:06 AM EDT from Last 3 Months or Most Recently Relevant to Health Maintenance Results * (ABNORMAL) POCT HGB A1C (10/03/2024 10:09 AM EDT) Hemoglobin A1C 7.9(A) 4.0 - 6.0 % QC Media Lot # [id number] Lot# Expiration Date 122,027 Blood 10/03/2024 10:0 9 AM EDT Result [facility] Zulema Wasserman MD POINT OF CARE TEST ENTER/EDIT ORDERABLES Final Result * POCT Glucose (10/03/2024 10:08 AM EDT) Glucose Blood, POC 160 60 - 200 mg/dL QC Media Lot # [id number] Lot# Expiration Date ,025 Blood Capillary blood specimen / Unknown 10/03/2024 10:08 AM EDT Result [facility] Zulema Wasserman MD POINT OF CARE TEST ENTER/EDIT ORDERABLES Final Result * ECG 12 lead (09/12/2024 8:33 AM EDT) Only the most recent of2 resultswithin the time period is included. Result [facility] Historical Provider ECG ORDERABLES Final Res ult * CT Abdomen Pelvis w/o Contrast (09/11/2024 12:28 PM EDT) Anatomical Region Laterality Modality Body, Pelvis, Abdomen Computed T omography Result [facility] Historical Provider IMG CT PROCEDURES Final R esult * Hm Colonoscopy (05/09/2024 9:15 AM EST) Result [facility] Historical Provider HEALTH MAINTENANCE Final Result * Hm Diabetes Eye Exam (03/25/2024 12:23 PM EST) Historical Provider HEALTH MAINTENANCE Final Result * Hepatitis C Antibody with Reflex to HCV, RNA, Quantitative, Real-Time PCR (01/19/2024 8:33 AM EDT) Pathologist [facility] Hepatitis C Antibody Nonreactive Nonreactive [facility] Comment:Antibodies to HCV no t detected; does not exclude early acuteHCV infection. Blood Venous blood specimen / Unknown 01/19/2024 8:33 AM EDT 01/19/2024 2:03 PM EDT Result [facility] Zulema Wasserman MD LAB BLOOD ORDERABLES Final Re sult [facility] [address] [place] [phone] * HP Diabetic Foot Exam (08/14/2023) Narrative Zulema Wasserman MD - 08/14/2023 Charcot foot bilateral, varicoise veins, callus, dry skin. Abnormal nails. Result [facility] Zulema Wasserman MD HEALTH MAINTENANCE Final Resu lt * Mammography (08/09/2023) Pathologist [facility] Mammogram BIRADS 2 Normal, Abnormal, BIRADS 1 , BIRADS 2 Anatomical Region Laterality Modality Other Result [facility] Zulema Wasserman MD [facility] MAINTENANCE Final Resu lt * [facility] Ab/Ag [facility] (02/02/2023 1:11 PM EDT) Pathologist [facility] HIV AB/AG Nonreactive Nonreactive [facility] Comment:HIV-1 p24 Ag and/or HIV-1/HIV-2 Ab not detected.A test result that is nonreactive does not exclude thepossibility of exposure to or infection with HIV-1 and/orHIV-2. Nonreactive results in this assay for individualswith prior exposure to HIV-1 and/or HIV-2 may be due toantigen and antibody levels that are below the limit ofdetection of this assay.The [facility] HIV Ag/Ab Combo assay result andsupplemental assay results should be interpreted inconjunction with the patient's clinical presentation,history and other laboratory results. If the results areinconsistent with clinical evidence, additional testing issuggested to confirm the result. 02/02/2023 1:11 PM EDT 02/02/2023 2:22 PM EDT Zulema Wasserman MD LAB BLOOD ORDERABLES Final Re sult Performing Organization Address [facility] de Phone Number [facility] [address] [place] [phone] * Lipid Panel, Standard (02/02/2023 1:11 PM EDT) Triglycerides 141 <150 mg/dL [facility] Comment:Desirable Triglyceri de: less than 150 mg/dLBorderline High Triglyceride 150-199 mg/dLHigh Triglyceride: 200-499 mg/dLVery High Triglyceride: greater than or equal to 5OO mg/dL Cholesterol 135 <200 mg/dL [facility] Comment:Desirable Cholestero l: less than 200 mg/dLBorderline High Cholesterol: 200-239 mg/dLHigh Cholesterol: greater than 239 mg/dL LDL Cholesterol Calculated 54 <100 mg/dL [facility] Comment:Desirable LDL: less than 100 mg/dLNear Optimal/Above Optimal LDL: 110- 129 mg/dLBorderline High LDL: 130-159 mg/dLHigh LDL: 160-189 mg/dLVery High LDL: greater than or equal to 190 mg/dL HDL Cholesterol 53 >40 mg/dL [facility] Comment:Desirable HDL: great er than 40 mg/dL Note: This HDL assay may give artificially low results in patients with liver disease. Blood Venous blood specimen / Unknown 02/02/2023 1:11 PM EDT 02/02/2023 2:22 PM EDT us Zulema Wasserman MD LAB BLOOD ORDERABLES Final Re sult Performing Organization Address [facility] Co de Phone Number [facility] [address] [place] [phone] * THINPREP TIS PAP AND HPV mRNA E6/E7 WITH REFLEX TO HPV 16,18/45 (11/12/2021 11:06 AM EDT) Clinical Information: None given [facility] COMMENT SEE COMMENT [facility] Comment: EXPLANATORY NOTE: ? The Pap is a screening test for cervical cancer. It is ?? not a diagnostic test and is subject to false negative ?? and false positive results. It is most reliable when a ?? satisfactory sample, regularly obtained, is submitted ?? with relevant clinical findings and history, and when ?? the Pap result is evaluated along with historic and ?? current clinical information. ?? COMMENT: This Pap test has been evaluated with computer assisted technology. [facility] Cytotechnologis t: SEE COMMENT [facility] Comment: DMM, CT(ASCP) CT screening location: [address] ??[id number] HPV nRNA E6/E7 Not Detected Not Detected [facility] Comment: Methodology: Diesel Engine [employer] Pipe Fitter-Mediated Amplification This assay detects E6/E7 viral messenger RNA (mRNA) from 14 high-risk HPV types (16,18,31,33,35,39,45,51,52,56,58,59,66,68). ? Cervical sources are required for HPV testing. If a vaginal source from a patient who has had a total hysterectomy with removal of cervix was ?? submitted, please contact the testing laboratory for alternative testing options. ?? For additional information, please refer to http://education.SpaBooker/faq/OHP442g6 (This link if provided for information/ educational purposes only.) Interpretation/ Result: Negative for intraepithelial lesion or malignancy. [facility] LMP: NONE [facility] Prev. BX: NONE [facility] Prev. PAP: NONE [facility] SOURCE: Cervix [facility] Statement Of Adequacy: SEE COMMENT [facility] Comment: Satisfactory for evaluation. Endocervical/transformation zone component present. 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
[2024-10-03 14:37] LABS: Alanine Aminotransferase 31 U/L (0-31); Albumin Level 4.2 g/dL (3.5-5.0); Alkaline Phosphatase 121 U/L (39-117); Anion Gap 16 (12-20); Aspartate Amino Transferase 39 U/L (5-31); Bilirubin Total 0.4 mg/dL (0.0-1.0); Blood Urea Nitrogen 21 mg/dL (9-16); Calcium 9.7 mg/dL (8.4-10.2); Carbon Dioxide 28 mmol/L (22-29); Chloride 100 mmol/L (96-108); Cholesterol 116 mg/dL (<200); Estimated Glomerular Filt Rate 31; Glucose Random 128 mg/dL (60-115); HDL Cholesterol 46 mg/dL (>40); LDL Cholesterol Calculated 43 mg/dL (<100); Potassium 4.4 mmol/L (3.3-5.1); Sodium 140 mmol/L (135-145); Total Protein 7.8 g/dL (6.5-8.0); Triglycerides 137 mg/dL (<150)
[2024-10-03 14:48] LABS: TSH reflex Free T4 3.28 uIU/mL (0.32-4.0)
== END 2024-10-03 10:33 | disposition home or self-care (01) ==
LOC: HO.CHCLDS 10:32
PROVIDERS: Visit Provider Family Medicine
DX: E11.21 Type 2 diabetes mellitus with diabetic nephropathy (principal); E66.812 Obesity, class 2
CPT/HCPCS: 36415; 80053; 80061; 84443